=== PATIENT | female | born 1985 | race Caucasian/White ===

== ENCOUNTER 2024-10-29 13:55 | Outpatient (AMB) | payer MEDICAID, SELFPAY ==
[2024-10-29 14:04] VITALS: BP 178/108; PULSE 95; RESP 16; TEMP 36.7; O2SAT 98; BMI 30.7
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
== END 2024-10-29 15:03 | disposition home or self-care (01) ==
LOC: HODAHC 13:55
PROVIDERS: PCP Student in an Organized Health Care Education/Training Program; Referring Provider Student in an Organized Health Care Education/Training Program; Supervising Provider Student in an Organized Health Care Education/Training Program; Visit Provider Student in an Organized Health Care Education/Training Program
DX: Z76.0 Encounter for issue of repeat prescription (principal); I10 Essential (primary) hypertension; R80.9 Proteinuria, unspecified; E11.9 Type 2 diabetes mellitus without complications; Z79.4 Long term (current) use of insulin; N28.89 Other specified disorders of kidney and ureter
CPT/HCPCS: 99213; G0463

== ENCOUNTER 2024-11-12 14:05 | Outpatient (AMB) | payer MEDICAID, SELFPAY ==
[2024-11-12 14:30] VITALS: BP 128/75; PULSE 90; RESP 16; TEMP 36.8; O2SAT 98; BMI 30.4
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
== END 2024-11-12 14:30 | disposition home or self-care (01) ==
LOC: HODAHC 14:05
PROVIDERS: PCP Student in an Organized Health Care Education/Training Program; Referring Provider Student in an Organized Health Care Education/Training Program; Supervising Provider Internal Medicine; Visit Provider Student in an Organized Health Care Education/Training Program
DX: R80.9 Proteinuria, unspecified (principal); E11.9 Type 2 diabetes mellitus without complications; Z79.4 Long term (current) use of insulin
CPT/HCPCS: 99214; G0463

== ENCOUNTER 2024-12-24 13:28 | Outpatient (AMB) | payer MEDICAID, SELFPAY ==
[2024-12-24 13:38] VITALS: BP 157/98; PULSE 93; RESP 18; TEMP 36.3; O2SAT 96; BMI 29.9
--- NOTE | 2024-12-24 13:38 | ACNOTE_ITS ---
Vital Signs 12/24/24 13:38 Height 1.66 m Height Method Stated Weight 82.667 kg Weight Measurement Method Standing Scale BMI 29.9 BP 157/98 H Blood Pressure Source Automatic Cuff Blood Pressure Location Left Upper Arm Position Sitting Respiration 18 Pulse 93 Pulse Source Monitor Temp 97.3 F Temp Source Oral Pulse Oximetry (%) 96 Oxygen Delivery Method Room Air Allergies/Meds Allergies & Medications Allergies No Known Allergies Allergy (Verified 01/14/25 15:05) Medication Reconciliation blood-glucose sensor (FreeStyle Mike 3 Sensor device) #2 ea 12/24/24 [Rx Confirmed 01/14/25] cholecalciferol (vitamin D3) 1,250 mcg (50,000 unit) capsule 1,250 mcg PO QWEEK #4 caps 12/24/24 [Rx Confirmed 01/14/25] ferrous sulfate 325 mg (65 mg iron) tablet 325 mg PO QDAY anemia #30 tabs 12/24/24 [Rx Confirmed 01/14/25] insulin glargine 100 unit/mL (3 mL) subcutaneous pen 18 unit (0.18 mL) subcut QPM #15 mL 12/24/24 [Rx Confirmed 01/14/25] pen needle, diabetic 29 gauge x 1/2 (Pen Needle) #100 ea 12/24/24 [Rx Confirmed 01/14/25] aspirin 81 mg chewable tablet 81 mg PO QDAY 12/30/24 [History Confirmed 01/14/25] Held on 12/30/24. Instructions: Resume on 01/01/25. restart on Friday01/01/25 chlorthalidone 25 mg tablet 25 mg PO QDAY #30 tabs 01/14/25 [Rx] dapagliflozin propanediol 10 mg tablet (Farxiga) 10 mg PO QAM #30 tabs 01/14/25 [Rx] lidocaine 5 % topical patch 3 patch topical QDAY #30 ea 01/14/25 [Rx] losartan 100 mg tablet 100 mg PO QDAY HTN #30 tabs 01/14/25 [Rx] nifedipine 30 mg tablet,extended release 60 mg (2 x 30 mg) PO QDAY #30 tabs 01/14/25 [Rx] semaglutide 1 mg/dose (4 mg/3 mL) subcutaneous pen injector (Ozempic) 1 mg (0.75 mL) subcut QWEEK #3 mL 01/14/25 [Rx] spironolactone 50 mg tablet (Aldactone) 50 mg PO QDAY #90 tabs 01/14/25 [Rx] MA Intake Visit Data Collection New Patient or Established: Established Patient (seen at [facility] within 3 years) Seen by Clinical Staff ONLY (RN/CHRISTIN): No Pain Present Currently: No Pain scale:: 0 Pain Scale Used: [employer] Member Required: No PCP or OBGYN visit in last 3 months: Yes Hx Now: No Date of Last Menstrual Period: 11/30/24 Do You Feel Safe at Home: Yes Authorities Contacted: N/A Smoking Status Smoking Status: Never smoker Immunization / Flu Flu Vaccine in the Last 12 Months: Yes Flu Vaccine Exclusion Criteria: No Exclusion Criteria Past Medical History Past Medical History NEUROLOGIC: Negative Neurological Disorders, Cerebrovascular Accident, Transient Ischemic Attacks (TIA), Dementia, Alzheimer's Disease, Parkinson's Disease, Brain Tumor, Meningitis, Seizures, Epilepsy, Multiple Sclerosis, Cerebral Palsy, Amyotrophic Lateral Sclerosis (ALS/Gertrude Gehrig's), Guillain-Buffalo Syndrome, Spina Bifida, Paralysis, Peripheral Neuropathy, Burrows's Palsy, Subdural Hematoma, Migraine, Head Trauma, Spinal Cord Injury or Traumatic Brain Injury CARDIAC: Positive Cardiac Disorders, Edema and Hypertension; Negative Myocardial Infarction, Cardiac Arrhythmia, Atrial Fibrillation, Angina, Heart Murmur, Coronary Artery Disease, Atherosclerotic Heart Disease, Peripheral Vascular Disease, Hypercholesterolemia, Aneurysm, Congestive Heart Failure, Congenital Heart Disease, Valvular Heart Disease, Rheumatic Fever, Cardiomyopathy, Pericarditis, Cellulitis, Deep Vein Thrombosis, Hypotension or Varicose Veins RESPIRATORY: Negative Chronic Obstructive Pulmonary Disease (COPD), Asthma, Bronchitis, Emphysema, Pneumonia, Pulmonary Fibrosis, Cystic Fibrosis, Tuberculosis, Pulmonary Embolism, Pulmonary Edema or Sleep Apnea GASTROINTESTINAL: Negative Gastrointestinal Disorders, Hepatitis, Cirrhosis, Pancreatitis, Celiac Disease, Gall Bladder Disease, Gastrointestinal Bleed, Esophageal Varices, Johnston's Esophagus, Colitis, Ulcerative Colitis, Diverticulitis, Diverticulosis, Ulcer, Colorectal Cancer, Irritable Bowel, Crohn's Disease, Obstructive Bowel, Hiatal Hernia, Hemorrhoids, Gastroesophageal Reflux Disease or Obesity GENITOURINARY: Negative Genitourinary Disorders, Renal Disease, Kidney Stones, Polycystic Kidney Disease, Neurogenic Bladder, Inguinal Hernia, Dialysis or Prostate Cancer REPRODUCTIVE: Negative Breast Cancer, Endometriosis, Genital Herpes, Gonorrhea, Pelvic Inflammatory Disease, Previous Pregnancies, Syphilis, Testicular Cancer or Uterine Prolapse MUSCULOSKELETAL: Negative Muscular Dystrophy, Myasthenia Gravis, Marfan's Syndrome, Bone Cancer, Arthritis, Rheumatoid Arthritis, Osteoporosis, Degenerative Disk Disease, Gout, Scoliosis, Carpal Tunnel Syndrome, Fibromyalgia, Fractures, Degenerative Joint Disease, Osteomyelitis or Poliovirus ENT: Negative Cataracts, Glaucoma, Blind, Retinal Detachment, Macular Degeneration, Ear Infection, Deafness, Head Trauma or Eye Prosthesis ENDOCRINE: Positive Endocrine Disorders and Diabetes Mellitus Type 2; Negative Diabetes Mellitus Type 1, Hypoglycemia, Bloom[place]'s Syndrome, Dallam's Disease, Hyperthyroidism, Hypothyroidism, Parathyroid Disease, Pituitary Disease, Systemic Lupus Erythematosus, Syndrome of Inappropriate Antidiuretic Hormone (SIADH), Adrenal Disease or Graves' Disease HEMATOLOGIC: Negative Blood Disorders, Anemia, Leukemia, Hemophilia, Thalassemia, Sickle Cell Disease or Clotting Problems PSYCHO/SOCIAL: Negative Psychiatric Problems, Schizophrenia, Recreational Drug Use, Bipolar Disorder, Depression, Anxiety, Behavior Problems, Self-Mutilation, Attention Deficit Disorder, Attention Deficit Hyperactivity Disorder, Depression, Post Traumatic Stress Disorder or Eating Disorder OTHER HISTORY: Negative Down Syndrome, Autism, Developmental Delay, Shingles, Falls, Blood Transfusions, Blood Transfusion Reaction, Anesthesia Reactions, Organ Transplant, Chemotherapy, Radiation Therapy, Hyperbaric Therapy, MRSA, VRSA, Vancomycin-Resistant Enterococci, Human Immunodeficiency Virus (HIV), Chicken Pox, Measles, Mumps, Rubella (Tamazight Measles), Pertussis, Clostridium Difficile, Cancer, Breast Cancer, Cervical Cancer, Colorectal Cancer, Lung Cancer, Ovarian Cancer, Prostate Cancer or Testicular Cancer Family History FAMILY HISTORY: Negative Family Psychiatric Problems, Family Respiratory Disorders, Family Cardiac Disorders, Family Gastrointestinal Problems, Family Cancer, Family Surgery or Family Anesthesia Reaction Surgical History SURGICAL: Negative Cardiac Surgery, Open Heart Surgery, Coronary Artery Bypass Graft, Valve Replacement, Vascular Surgery, Coronary Stent, Cardiac Catheterization, Pacemaker, Angiogram, Auto Implanted Cardiovert Defib, Carotid Endarterectomy, Endocrine Surgery, Thyroidectomy, Ear Surgery, Tympanostomy Tube, Eye Surgery, Nose Surgery, Oral Surgery, Tonsillectomy, Adenoidectomy, Cochlear Implant, Corneal Transplant, Throat Surgery, Abdominal Surgery, Tracheostomy, Gastric Bypass Surgery, Gastrostomy, Bowel Surgery, Nephrectomy, Transurethral Resection, Joint Replacement, Amputation, Open Reduction Internal Fixation, Arthroscopy, Neurologic Surgery, Mastectomy, Lumpectomy, Hysterectomy, Tubal Ligation, Section or Organ Transplant Social History SMOKING STATUS: Smoking status: Never smoker ALCOHOL: Alcohol Intake: Current ALCOHOL FREQUENCY: Alcohol Intake Frequency: holidays/special occasions only HOUSING: Housing: Apartment LIVES WITH: Lives With: Family Patient Portal Questionaires PHQ-9 PHQ-2 Over the last 2 weeks, how often have you been bothered by any of the following problems? 1. Little interest or pleasure in doing things: not at all 2. Feeling down, depressed, or hopeless: not at all Total score: 0 PHQ-9 3. Trouble falling or staying asleep, or sleeping too much: Not at all 4. Feeling tired or having little energy: Not at all 5. Poor appetite or overeating: Not at all 6. Feeling bad about yourself - or that you are a failure or have let yourself or your family down: Not at all 7. Trouble concentrating on things, such as reading the newspaper or watching television: Not at all 8. Moving or speaking so slowly that other people could have noticed? - Or the opposite - being so fidgety or restless that you have been moving around a lot more than usual: not at all 9. Thoughts that you would be better off or of hurting yourself in some way: Not at all Total score: 0 Source: Developed by Drs. Mani Mclaughlin, Loyda Arevalo, Nick Mcgregor and colleagues, with an educational jessie from [employer]. Depression screen completed yes Social History Living Situation History Housing: Apartment Tobacco History Smoking Status: Never smoker Alcohol History Alcohol Intake: Current Alcohol Intake Frequency: holidays/special occasions only Domestic Abuse History Do You Feel Safe at Home: Yes Review of Systems Report any current symptoms Only answer those that you have currently: Past Medical History Past Medical History Have you ever been diagnosed with any of the following: Neurological Problems Cerebrovascular Accident (CVA): No Transient Ischemic Attacks (TIA): No Dementia: No Alzheimer's Disease: No Parkinson's Disease: No Brain Tumor: No Meningitis: No Seizures: No Epilepsy: No Multiple Sclerosis: No Cerebral Palsy: No Amyotrophic Lateral Sclerosis (ALS/Gertrude Gehrig's): No Guillain-Buffalo Syndrome: No Spina Bifida: No Paralysis: No Peripheral Neuropathy: No Burrows's Palsy: No Subdural Hematoma: No Migraine: No Head Trauma: No Spinal Cord Injury: No Traumatic Brain Injury: No Cardiology Problems Myocardial Infarction: No Cardiac Arrhythmia: No Atrial Fibrillation: No Angina: No Heart Murmur: No Coronary Artery Disease: No Atherosclerotic Heart Disease: No Peripheral Vascular Disease: No Hypercholesterolemia: No Aneurysm: No Congestive Heart Failure: No Congenital Heart Disease: No Valvular Heart Disease: No Rheumatic Fever: No Cardiomyopathy: No Edema: Yes Pericarditis: No Cellulitis: No Deep Vein Thrombosis: No Hypertension: Yes Hypotension: No Varicose Veins: No Respiratory Problems Chronic Obstructive Pulmonary Disease (COPD): No Asthma: No Bronchitis: No Emphysema: No Pneumonia: No Pulmonary Fibrosis: No Tuberculosis: No Pulmonary Embolism: No Pulmonary Edema: No Sleep Apnea: No Stomache/Intestinal Problems Hepatitis: No Cirrhosis: No Pancreatitis: No Celiac Disease: No Gall Bladder Disease: No Gastrointestinal Bleed: No Esophageal Varices: No Johnston's Esophagus: No Colitis: No Ulcerative Colitis: No Diverticulitis: No Diverticulosis: No Ulcer: No Colorectal Cancer: No Irritable Bowel: No Crohn's Disease: No Obstructive Bowel: No Hiatal Hernia: No Hemorrhoids: No Gastroesophageal Reflux Disease: No Obesity: No Genital/Urinary Problems Renal Disease: No Kidney Stones: No Polycystic Kidney Disease: No Neurogenic Bladder: No Inguinal Hernia: No Dialysis: No Prostate Cancer: No Reproductive Problems Breast Cancer: No Endometriosis: No Genital Herpes: No Gonorrhea: No Pelvic Inflammatory Disease: No Previous Pregnancies: No Syphilis: No Testicular Cancer: No Uterine Prolapse: No Musculoskeletal Problems Muscular Dystrophy: No Myasthenia Gravis: No Marfan's Syndrome: No Bone Cancer: No Arthritis: No Rheumatoid Arthritis: No Osteoporosis: No Degenerative Disk Disease: No Gout: No Scoliosis: No Carpal Tunnel Syndrome: No Fibromyalgia: No Fractures: No Degenerative Joint Disease: No Osteomyelitis: No Poliovirus: No Head,Eye,Nose,Throat Problems Cataracts: No Glaucoma: No Blind: No Retinal Detachment: No Macular Degeneration: No Chronic Ear Infections: No Deafness: No Eye Prosthesis: No Endocrine Problems Diabetes Mellitus Type 1: No Diabetes Mellitus Type 2: Yes Hypoglycemia: No Bloomington's Syndrome: No Dallam's Disease: No Hyperthyroidism: No Hypothyroidism: No Parathyroid Disease: No Pituitary Disease: No Systemic Lupus Erythematosus: No Syndrome of Inappropriate Antidiuretic Hormone: No Adrenal Disease: No Graves' Disease: No Blood Problems Anemia: No Leukemia: No Hemophilia: No Thalassemia: No Sickle Cell Disease: No Clotting Problems: No Psychologic Problems Schizophrenia: No Recreational Drug Use: No Bipolar Disorder: No Depression: No Anxiety: No Behavior Problems: No Self-Mutilation: No Attention Deficit Disorder: No Attention Deficit Hyperactivity Disorder: No Depression: No Post Traumatic Stress Disorder: No Eating Disorder: No Other Problems Down Syndrome: No Autism: No Developmental Delay: No Shingles: No Falls: No Blood Transfusions: No Blood Transfusion Reaction: No Anesthesia Reactions: No Organ Transplant: No Chemotherapy: No Radiation Therapy: No Hyperbaric Therapy: No MRSA: No VRSA: No Vancomycin-Resistant Enterococci: No Human Immunodeficiency Virus (HIV): No Chicken Pox: No Measles: No Mumps: No Rubella (Tamazight Measles): No Pertussis: No Clostridium Difficile: No Cancer: No Cervical Cancer: No Lung Cancer: No Ovarian Cancer: No Surgical History Carotid Endarterectomy: No Coronary Artery Bypass Graft: No Valve Replacement: No Hysterectomy: No Pacemaker: No Thyroidectomy: No History of Present Illness HPI Narrative 12/24/24: Patient is here for f/u. Patient continue to have elevated BP. Patient is being referred for kidney biopsy. Review of Systems Review of Systems Systems Reviewed: All systems reviewed, normal except as documented Assessment & Plan Diagnosis / Problem List (1) Proteinuria: Status: Acute Qualifiers: Proteinuria type: unspecified Qualified Code(s): R80.9 - Proteinuria, unspecified Assessment & Plan: random alb/cr ratio showed approx 10g of protein loss in the urine suspect likely 2/2 to uncontrolled HTN and DM2 causing HTN/diabetic nephropathy however due to age cannot rule out other nephrotic causes such as membranous nephropathy, RICHARD, FSGS, Lupus nephritis Renal US showed moderate parenchymal scarring GFR 79 on 06/2024 Autoimmune panel return wnl Plan: -[id number] started -referred to kidney biopsy (2) Hypertension: Status: Chronic Qualifiers: Hypertension type: primary hypertension Qualified Code(s): I10 - Essential (primary) hypertension Assessment & Plan: Elevated today, not controlled or at goal Plan: -cont losartan 100 mg QD -start procardia 30mg QD -started spirolactine 50mg QD by neph -measure BP at home -lifestyle modifications were recommended -follow in 2 weeks, if not at goal we will increase dosage (3) Diabetes type 2, controlled: Status: Acute Qualifiers: Diabetes mellitus penitentiary insulin use: 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 Issues of concern for present visit are as follows: Follow-up visit. Labs reviewed. Nephrotic range proteinuria on labs, renal ultrasound showed moderate parenchymal scarring. Autoimmune panel was within normal limits. Patient started on SGLT2 inhibitor. Referral made for nephrology for workup of proteinuria; possible causes may be uncontrolled hypertension and diabetes but cannot rule out other possible causes. Diabetes self-care reviewed including diet, exercise, footcare, eye care. Blood pressure is elevated today, we will add nifedipine 30 mg daily to losartan. Jose Kim MD Office Procedures [facility] Level of Care Nursing/Assessment Patient Status: Established Patient Nursing Assessment/Reassessment: Medication Reconciliation, Update PMH in EMR and Vital Signs Coordination of Care: Complex Care and Chronic Disease 1-5, Consent,records obtained, informed consent, Education Simp Pt/Fam, Results/Orders obtained and Staff clarify orders Established Patient Charge Established Patient Point Assignment: 90 Established Patient Point Charge: EP Level 3 (80-115)
== END 2024-12-24 14:34 | disposition home or self-care (01) ==
LOC: HODAHC 13:28
PROVIDERS: PCP Student in an Organized Health Care Education/Training Program; Referring Provider Student in an Organized Health Care Education/Training Program; Supervising Provider Internal Medicine; Visit Provider Student in an Organized Health Care Education/Training Program
DX: R80.9 Proteinuria, unspecified (principal); I10 Essential (primary) hypertension; E11.9 Type 2 diabetes mellitus without complications; Z79.4 Long term (current) use of insulin; Z79.84 Long term (current) use of oral hypoglycemic drugs; Z79.85 Long-term (current) use of injectable non-insulin antidiabetic drugs; N28.89 Other specified disorders of kidney and ureter
CPT/HCPCS: 99213; G0463

== ENCOUNTER 2024-12-30 07:17 | Outpatient (CLI) | payer MEDICAID, SELFPAY ==
[2024-12-24 16:10] VITALS: BMI 29.9
[2024-12-28 08:14] LABS: Blood Urea Nitrogen 23 mg/dL (9-23); Creatinine (Component) 1.2 mg/dL (0.6-1.3); Estimated Creatinine Clearance 65.8 mL/min (>60); eGFR 59 See Note
[2024-12-28 08:17] LABS: Basophils # (Auto) 0.1 Thou/mm3 (0.0-0.2); Basophils % (Auto) 1 % (0-2.5); Eosinophils # (Auto) 0.7 Thou/mm3 (0.0-0.5); Eosinophils % (Auto) 8 % (0-10); Hematocrit 36.6 % (36.0-46.0); Hemoglobin 12.1 g/dL (12.0-16.0); Immature Granulocytes % (Auto) 0 % (0-0); Immature Granulocytes Auto 0.02 Thou/mm3 (0.00-0.00); Lymphocytes % (Auto) 31 % (10-50); Mean Corpuscular HGB Conc 33.1 g/dl (31.0-37.0); Mean Corpuscular Hemoglobin 27.7 pg (25.0-35.0); Mean Corpuscular Volume 84 fL (80-100); Monocytes # (Auto) 0.8 Thou/mm3 (0.0-0.8); Monocytes % (Auto) 9 % (0-12); Neutrophils # (Auto) 4.9 Thou/mm3 (1.8-7.7); Neutrophils % (Auto) 51 % (37-80); Nucleated Red Blood Cell % 0 /100 WBC (0); Platelet Count 347 Thou/mm3 (140-440); RDW Standard Deviation 42.6 fL (36.4-46.3); Red Blood Count 4.37 Miln/mm3 (4.00-5.20); White Blood Count 9.5 Thou/mm3 (3.6-11.0)
[2024-12-28 08:19] LABS: HCG,Qualitative Serum Negative
[2024-12-28 08:36] VITALS: BP 153/100; PULSE 87; RESP 15; TEMP 36.6; O2SAT 96
[2024-12-28 08:52] LABS: Partial Thromboplastin Time 27.1 Seconds (22.0-36.0); Prothrombin Time 10.7 Seconds (9.0-12.2)
[2024-12-30] VITALS (11 sets, daily range): BP systolic 117–145; BP diastolic 75–91; PULSE 94–101; RESP 13–22; TEMP 36.3–36.4; O2SAT 100
--- NOTE | 2024-12-30 08:30 | XR_ITS ---
Examination: CT-guided percutaneous medical renal biopsy lower pole right kidney CT abdomen without intravenous contrast Date and time of procedure: December 30, 2024 0941 hours INDICATIONS: Diagnosis abnormal proteinuria unspecified Informed consent provided. A timeout was completed verifying correct patient, procedure, site and positioning. Technique: Axial 3 mm sections were obtained for localization of the lung lower pole right kidney Appropriate area is marked. The patient's site was prepped and draped in sterile fashion Maximal sterile barrier technique utilized, including hand hygiene Local anesthesia was obtained with 1% lidocaine. Low dose protocols were performed. One or more of the following dose reduction techniques were used; automated exposure control, adjustment of the mA and/or KV according to patient size, use of iterative reconstruction technique. Utilizing fluoroscopic guidance 2 core biopsies with an 18-gauge core needle obtained of the lower pole right kidney Patient appears in stable condition during this procedure. At completion of the procedure, the patient is in satisfactory condition. Estimated blood loss 2 cc Complete pathology report to follow. Impression: Successful CT-guided medical renal biopsy lower pole right kidney
[2024-12-30] MEDS: fentaNYL CIT INJ 50 mCg/ML AMP 2ML 75 MCG IVP (09:51)
== END 2024-12-30 11:05 | disposition home or self-care (01) ==
PROVIDERS: Radiology Diagnostic Radiology; PCP Student in an Organized Health Care Education/Training Program; Referring Provider Student in an Organized Health Care Education/Training Program; Visit Provider Student in an Organized Health Care Education/Training Program
DX: N26.9 Renal sclerosis, unspecified (principal); N18.9 Chronic kidney disease, unspecified; Z01.812 Encounter for preprocedural laboratory examination
CPT/HCPCS: 50200; 36415; 77012; 82565; 84520; 84703; 85025; 85610; 85730; J3010

== ENCOUNTER 2025-01-14 14:50 | Outpatient (AMB) | payer MEDICAID, SELFPAY ==
[2025-01-14 15:02] VITALS: BP 164/93; PULSE 98; RESP 18; TEMP 36.6; O2SAT 98
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
== END 2025-01-14 16:30 | disposition home or self-care (01) ==
LOC: HODAHC 14:50
PROVIDERS: PCP Student in an Organized Health Care Education/Training Program; Referring Provider Student in an Organized Health Care Education/Training Program; Supervising Provider Internal Medicine; Visit Provider Student in an Organized Health Care Education/Training Program
DX: I10 Essential (primary) hypertension (principal); E11.9 Type 2 diabetes mellitus without complications; Z79.4 Long term (current) use of insulin; R80.9 Proteinuria, unspecified; N94.6 Dysmenorrhea, unspecified
CPT/HCPCS: 99213; G0463

== ENCOUNTER 2025-02-03 14:26 | Outpatient (AMB) | payer MEDICAID, SELFPAY ==
[2025-02-03 14:39] VITALS: BP 121/81; PULSE 98; RESP 18; TEMP 37; O2SAT 98; BMI 28.7
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
== END 2025-02-03 15:33 | disposition home or self-care (01) ==
LOC: HODAHC 14:26
PROVIDERS: PCP Student in an Organized Health Care Education/Training Program; Referring Provider Student in an Organized Health Care Education/Training Program; Supervising Provider Internal Medicine; Visit Provider Student in an Organized Health Care Education/Training Program
DX: I12.9 Hypertensive chronic kidney disease with stage 1 through stage 4 chronic kidney disease, or unspecified chronic kidney disease (principal); E11.22 Type 2 diabetes mellitus with diabetic chronic kidney disease; E11.21 Type 2 diabetes mellitus with diabetic nephropathy; N18.9 Chronic kidney disease, unspecified; Z79.4 Long term (current) use of insulin
CPT/HCPCS: 99213; G0463

== ENCOUNTER 2025-02-11 14:06 | Outpatient (AMB) | payer MEDICAID, SELFPAY ==
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
== END 2025-02-11 16:34 | disposition home or self-care (01) ==
LOC: HODAHC 14:06
PROVIDERS: PCP Student in an Organized Health Care Education/Training Program; Referring Provider Student in an Organized Health Care Education/Training Program; Supervising Provider Internal Medicine; Visit Provider Student in an Organized Health Care Education/Training Program
DX: I10 Essential (primary) hypertension (principal)
CPT/HCPCS: 99212; G0463

== ENCOUNTER 2025-04-04 10:38 | Outpatient (AMB) | payer MEDICAID, SELFPAY ==
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
[2025-04-04 11:02] VITALS: BP 163/91; PULSE 91; RESP 18; TEMP 36.8; O2SAT 93; BMI 29.7
== END 2025-04-04 13:07 | disposition home or self-care (01) ==
LOC: HODAHC 10:38
PROVIDERS: Supervising Provider Internal Medicine
DX: H60.92 Unspecified otitis externa, left ear (principal); E11.9 Type 2 diabetes mellitus without complications; I10 Essential (primary) hypertension; Z79.85 Long-term (current) use of injectable non-insulin antidiabetic drugs; Z79.4 Long term (current) use of insulin; Z79.84 Long term (current) use of oral hypoglycemic drugs
CPT/HCPCS: 99213; G0463

== ENCOUNTER 2025-04-18 11:12 | Outpatient (AMB) | payer MEDICAID, SELFPAY ==
[2025-04-18 11:25] VITALS: BP 162/89; PULSE 105; RESP 17; TEMP 36.6; O2SAT 91; BMI 29.2
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
== END 2025-04-18 12:08 | disposition home or self-care (01) ==
PROVIDERS: Supervising Provider Obstetrics & Gynecology; Visit Provider Obstetrics & Gynecology
DX: Z01.419 Encounter for gynecological examination (general) (routine) without abnormal findings (principal)
CPT/HCPCS: 99213; G0463

== ENCOUNTER 2025-05-04 10:42 | Outpatient (AMB) | payer MEDICAID, SELFPAY ==
[2025-05-04 10:56] VITALS: BP 139/85; PULSE 91; RESP 17; TEMP 36.3; O2SAT 98; BMI 29.5
--- NOTE | 2025-05-04 10:56 | AMB.GYNCLNOT ---
Vital Signs 05/04/25 10:56 Height 1.68 m Height Method Measured Weight 83.178 kg Weight Measurement Method Standing Scale BMI 29.5 BP 139/85 H Blood Pressure Source Automatic Cuff Blood Pressure Location Right Upper Arm Position Sitting Respiration 17 Pulse 91 Pulse Source Monitor Temp 97.4 F Temp Source Temporal Artery Scan Pulse Oximetry (%) 98 Oxygen Delivery Method Room Air Allergies/Home Meds Allergies & Medications Allergies No Known Allergies Allergy (Verified 05/04/25 10:57) Medication Reconciliation aspirin 81 mg chewable tablet 81 mg PO QDAY 12/30/24 [History Confirmed 05/04/25] Held on 12/30/24. Instructions: Resume on 01/01/25. restart on Friday01/01/25 lidocaine 5 % topical patch 3 patch topical QDAY #30 ea 01/14/25 [Rx Confirmed 05/04/25] blood-glucose sensor (FreeStyle Mike 3 Sensor device) #2 ea 02/11/25 [Rx Confirmed 05/04/25] chlorthalidone 25 mg tablet 25 mg PO QDAY #30 tabs 02/11/25 [Rx Confirmed 05/04/25] cholecalciferol (vitamin D3) 1,250 mcg (50,000 unit) capsule 1,250 mcg PO QWEEK #4 caps 02/11/25 [Rx Confirmed 05/04/25] dapagliflozin propanediol 10 mg tablet (Farxiga) 10 mg PO QAM #30 tabs 02/11/25 [Rx Confirmed 05/04/25] ferrous sulfate 325 mg (65 mg iron) tablet 325 mg PO QDAY anemia #30 tabs 02/11/25 [Rx Confirmed 05/04/25] insulin glargine 100 unit/mL (3 mL) subcutaneous pen 18 unit (0.18 mL) subcut QPM #15 mL 02/11/25 [Rx Confirmed 05/04/25] losartan 100 mg tablet 100 mg PO QDAY HTN #30 tabs 02/11/25 [Rx Confirmed 05/04/25] pen needle, diabetic 29 gauge x 1/2 (Pen Needle) #100 ea 02/11/25 [Rx Confirmed 05/04/25] semaglutide 1 mg/dose (4 mg/3 mL) subcutaneous pen injector (Ozempic) 1 mg (0.75 mL) subcut QWEEK #3 mL 02/11/25 [Rx Confirmed 05/04/25] spironolactone 50 mg tablet (Aldactone) 50 mg PO QDAY #90 tabs 02/11/25 [Rx Confirmed 05/04/25] wjjkcjrz-pgxjcqjbn-jhrpnawgp 3.5 mg-10,000 unit/mL-1 % ear drops,susp 4 drp Left ear Q8H #10 mL 04/04/25 [Rx Confirmed 05/04/25] Intake Visit Data Collection New Patient or Established: Established Patient (seen at [facility] within 3 years) Reason for Visit:: ANNUAL EXAM Consent obtained for Telemed Visit: No Seen by Clinical Staff ONLY (RN/MA): No Automatic Centrifugal Station Operator Required: No Do You Feel Safe at Home: Yes Authorities Contacted: N/A PCP or OBGYN visit in last 3 months: Yes Date of Last PCP or OBGYN visit: 04/18/25 Hx Now: No Are you currently on any form of Control: No Last menstrual period: 04/17/25 Pain Present Currently: No Pain Scale Used: Quintero-Warner/Numerical Pain scale:: 0 Smoking Status Smoking Status: Smoker, status unknown 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 She does not desire future childbearing. Cycles are heavy monthly lasting 5 to 7 days especially the first 2 to 3 days are very heavy. 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 Other Relevant History: Hypertension. Insulin requiring diabetes Chronic kidney failure History of necrotizing fasciitis in 2010 Anxiety Questionnaires Covid-19 Vaccine Questionnaire Has patient been vacinated for Covid-19 Have you been vacinated for Covid-19: No PHQ-9 PHQ-2 Over the last 2 weeks, how often have you been bothered by any of the following problems? 1. Little interest or pleasure in doing things: not at all PHQ-9 8. Moving or speaking so slowly that other people could have noticed? - Or the opposite - being so fidgety or restless that you have been moving around a lot more than usual: not at all Source: Developed by Drs. Mani Mclaughlin, Loyda Arevalo, Nick Mcgregor and colleagues, with an educational jessie from [employer]. 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 Tobacco History Smoking Status: Smoker, status unknown Alcohol History Alcohol Intake: Never Alcohol Intake Frequency: holidays/special occasions only Domestic Abuse History Do You Feel Safe at Home: Yes History of Present Illness HPI Narrative The patient is a 40-year-old G0 presents for follow-up. She needs an annual exam. I did see her in the office 04/18/2025 for some abnormal bleeding. She states her cycles are 5 to 7 days last 5 to 7 days a month they are about 21 days apart in the first 2 to 3 days are extremely heavy. She has some cramping pain associated with it. Patient has chronic hypertension and is on multiple medications to control her blood pressure she also has diabetic on insulin. She has chronic kidney failure and is on two medications in order to protect her kidneys. I have an ultrasound on the chart dated 02/23/2025 revealing the uterus to measure 9.5 x 6.5 x 5.1 cm with right ovary normal, left ovary not seen well. The endometrial thickness was 0.7 cm. One fibroid was present measuring 2.8 x 3.1 cm at the fundus along with other similar lesions are seen in the uterus . These were not measured. The patient is not a candidate for control pills secondary to her hypertension. She may be a candidate for an ablation. She states she does not want to have children. Review of Systems Review of Systems Narrative Review of Systems: Patient states she has heavy cycles. She states they are painful lasting 5 to 7 days. The first 2 to 3 days are the most heavy and most uncomfortable. No abnormal discharge no odor no chronic pelvic pain. Exam General Limitations: no limitations General Appearance: alert, in no apparent distress, comfortable, cooperative, healthy appearing and well groomed Neck Neck exam: Present normal inspection, full ROM and trachea midline Chest Chest inspection: Present normal inspection and symmetric chest wall rise Exp Chest Breast: bilateral: other (Normal breast exam bilaterally.) Resp Respiratory exam: Present normal lung sounds bilaterally Card Cardiovascular exam: Present regular rate, normal rhythm and normal heart sounds Abdominal Abdominal exam: Present soft and normal bowel sounds External exam: Present normal external exam Speculum exam: Present normal speculum exam and other (Patient has a fibroid protruding from her os approximately 3 x 3 cm.) Bimanual exam: Present normal bimanual exam (Uterus is anteverted the fibroid can be felt coming from her cervix on pelvic exam.) Extremities Extremities exam: Present normal inspection and full ROM Psych Psychiatric exam: Present normal affect and normal mood Skin Skin exam: Present warm, dry, intact and normal color Office Procedures OB Clinic LOC & Office Proc's Nursing/Assessment Patient Status: Established Patient OB Clinic Nursing Assessment: Medication Reconciliation, Update PMH in EMR and Vital Signs OB Clinic Coordination of Care: Complex Care and Chronic Disease 1-5, Consent,records obtained, informed consent and 4+ Authorizations needed Miscellaneous Interventions: Breast Exam Established Patient Charge Established Patient Point Assignment: 115 Established Patient Point Charge: EP Level 3 (80-115) In Clinic Procedures Pap Smear: Yes Assessment & Plan Diagnosis / Problem List (1) DUB (dysfunctional uterine bleeding): Status: Acute Plan: Patient has a protruding fibroid. She is a good candidate for a a hysteroscopy, myomectomy, dilation curettage, NovaSure ablation. I explained this would most likely lighten up her cycles. We need to remove the fibroid on her cervix as it will continue to cause bleeding and pain. If patient continues to bleed then she is a candidate for hysterectomy. Patient agrees with this plan will go and authorize for the procedure. (2) Pelvic pain: Status: Acute (3) CKD (chronic kidney disease): Status: Acute Qualifiers: Chronic kidney disease stage: stage 2 (GFR 60-89) Qualified Code(s): N18.2 - Chronic kidney disease, stage 2 (mild) Plan: Patient is on medications and following with her specialist. (4) Proteinuria: Status: Acute Qualifiers: Proteinuria type: unspecified Qualified Code(s): R80.9 - Proteinuria, unspecified (5) Hypertension: Status: Chronic Qualifiers: Hypertension type: primary hypertension Qualified Code(s): I10 - Essential (primary) hypertension (6) Insulin dependent diabetes mellitus: Status: Chronic (7) Women's annual routine gynecological examination: Status: Acute Plan: Pap with cotesting HPV was performed breast exam done encouraged mammogram was ordered. 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 Friable fibroid.) Collection method: broom type device Specimen placed in liquid-based cytology medium: Yes Complications: No Patient tolerated procedure well: Yes Follow up pending results: phone call Procedure Notes:: Pap with high-risk HPV performed Papsmear completed: yes
== END 2025-05-04 11:40 | disposition home or self-care (01) ==
LOC: HODSOBC 10:42
PROVIDERS: Supervising Provider Obstetrics & Gynecology; Visit Provider Obstetrics & Gynecology
DX: Z01.411 Encounter for gynecological examination (general) (routine) with abnormal findings (principal); Z11.51 Encounter for screening for human papillomavirus (HPV); N93.8 Other specified abnormal uterine and vaginal bleeding; D25.9 Leiomyoma of uterus, unspecified; E11.22 Type 2 diabetes mellitus with diabetic chronic kidney disease; I12.9 Hypertensive chronic kidney disease with stage 1 through stage 4 chronic kidney disease, or unspecified chronic kidney disease; N18.9 Chronic kidney disease, unspecified; F41.9 Anxiety disorder, unspecified; Z79.4 Long term (current) use of insulin; Z79.82 Long term (current) use of aspirin; Z79.84 Long term (current) use of oral hypoglycemic drugs; Z79.85 Long-term (current) use of injectable non-insulin antidiabetic drugs; Z79.899 Other long term (current) drug therapy
CPT/HCPCS: 99213; Q0091; G0463

== ENCOUNTER → 2025-05-27 | Outpatient (CLI) | payer MEDICAID, SELFPAY ==
--- NOTE | 2025-05-27 09:45 | XR_ITS ---
Examination: Transvaginal ultrasound of the pelvis, complete Technique: Transvaginal sonographic images pelvis performed using chatman scale imaging Exam date and time: May 27, 2025 1116 hours INDICATIONS: Severe pelvic cramping and perineal pressure 6 months FINDINGS: Uterus 8.7 cm fundal mass 2.7 x 3.1 cm uterine body mass 7 x 8 mm Endometrial stripe 0.6 cm Right ovary solid mass vascular 3.5 x 3.6 cm Left ovary 3.0 cm arterial flow 18 mm follicular cyst IMPRESSION: Uterine areas of fibroid degeneration as above Vascular solid right ovarian mass 3.5 x 3.0 x 3.6 cm most consistent with a brain tumor Recommend MRI pelvis follow-up pre and postcontrast.
== END | disposition home or self-care (01) ==
PROVIDERS: PCP Student in an Organized Health Care Education/Training Program; Referring Provider Obstetrics & Gynecology; Visit Provider Obstetrics & Gynecology
DX: D25.9 Leiomyoma of uterus, unspecified (principal); N83.8 Other noninflammatory disorders of ovary, fallopian tube and broad ligament
CPT/HCPCS: 76830

== ENCOUNTER 2025-06-15 15:04 | Outpatient (AMB) | payer MEDICAID, SELFPAY ==
[2025-06-15 15:25] VITALS: BP 127/81; PULSE 97; RESP 17; TEMP 36.2; O2SAT 97; BMI 29.4
--- NOTE | 2025-06-15 15:25 | PD.RESCLINIC ---
Vital Signs 06/15/25 15:25 Height 1.68 m Height Method Stated Weight 83.064 kg Weight Measurement Method Standing Scale BMI 29.4 BP 127/81 Blood Pressure Source Automatic Cuff Blood Pressure Location Right Upper Arm Position Sitting Respiration 17 Pulse 97 Pulse Source Monitor Temp 97.1 F Temp Source Temporal Artery Scan Pulse Oximetry (%) 97 Allergies/Meds Allergies & Medications Allergies No Known Allergies Allergy (Verified 05/04/25 10:57) MA Intake Visit Data Collection New Patient or Established: Established Patient (seen at [facility] within 3 years) Reason for Visit:: FOLLOW UP Pain Present Currently: No PCP or OBGYN visit in last 3 months: Yes Do You Feel Safe at Home: Yes Authorities Contacted: N/A Smoking Status Smoking Status: Smoker, status unknown Immunization / Flu Flu Vaccine in the Last 12 Months: No Flu Vaccine Exclusion Criteria: No Exclusion Criteria Past Medical History Past Medical History NEUROLOGIC: Negative Neurological Disorders, Cerebrovascular Accident, Transient Ischemic Attacks (TIA), Dementia, Alzheimer's Disease, Parkinson's Disease, Brain Tumor, Meningitis, Seizures, Epilepsy, Multiple Sclerosis, Cerebral Palsy, Amyotrophic Lateral Sclerosis (ALS/Gertrude Gehrig's), Guillain-[place] Syndrome, Spina Bifida, Paralysis, Peripheral Neuropathy, Burrows's Palsy, Subdural Hematoma, Migraine, Head Trauma, Spinal Cord Injury or Traumatic Brain Injury CARDIAC: Positive Cardiac Disorders, Edema and Hypertension; Negative Myocardial Infarction, Cardiac Arrhythmia, Atrial Fibrillation, Angina, Heart Murmur, Coronary Artery Disease, Atherosclerotic Heart Disease, Peripheral Vascular Disease, Hypercholesterolemia, Aneurysm, Congestive Heart Failure, Congenital Heart Disease, Valvular Heart Disease, Rheumatic Fever, Cardiomyopathy, Pericarditis, Cellulitis, Deep Vein Thrombosis, Hypotension or Varicose Veins RESPIRATORY: Negative Chronic Obstructive Pulmonary Disease (COPD), Asthma, Bronchitis, Emphysema, Pneumonia, Pulmonary Fibrosis, Cystic Fibrosis, Tuberculosis, Pulmonary Embolism, Pulmonary Edema or Sleep Apnea GASTROINTESTINAL: Negative Gastrointestinal Disorders, Hepatitis, Cirrhosis, Pancreatitis, Celiac Disease, Gall Bladder Disease, Gastrointestinal Bleed, Esophageal Varices, Johnston's Esophagus, Colitis, Ulcerative Colitis, Diverticulitis, Diverticulosis, Ulcer, Colorectal Cancer, Irritable Bowel, Crohn's Disease, Obstructive Bowel, Hiatal Hernia, Hemorrhoids, Gastroesophageal Reflux Disease or Obesity GENITOURINARY: Negative Genitourinary Disorders, Renal Disease, Kidney Stones, Polycystic Kidney Disease, Neurogenic Bladder, Inguinal Hernia, Dialysis or Prostate Cancer REPRODUCTIVE: Negative Breast Cancer, Endometriosis, Genital Herpes, Gonorrhea, Pelvic Inflammatory Disease, Previous Pregnancies, Syphilis, Testicular Cancer or Uterine Prolapse MUSCULOSKELETAL: Negative Muscular Dystrophy, Myasthenia Gravis, Marfan's Syndrome, Bone Cancer, Arthritis, Rheumatoid Arthritis, Osteoporosis, Degenerative Disk Disease, Gout, Scoliosis, Carpal Tunnel Syndrome, Fibromyalgia, Fractures, Degenerative Joint Disease, Osteomyelitis or Poliovirus ENT: Negative Cataracts, Glaucoma, Blind, Retinal Detachment, Macular Degeneration, Ear Infection, Deafness, Head Trauma or Eye Prosthesis ENDOCRINE: Positive Endocrine Disorders and Diabetes Mellitus Type 2; Negative Diabetes Mellitus Type 1, Hypoglycemia, Partridge's Syndrome, [place]'s Disease, Hyperthyroidism, Hypothyroidism, Parathyroid Disease, Pituitary Disease, Systemic Lupus Erythematosus, Syndrome of Inappropriate Antidiuretic Hormone (SIADH), Adrenal Disease or Graves' Disease HEMATOLOGIC: Positive Anemia; Negative Blood Disorders, Leukemia, Hemophilia, Thalassemia, Sickle Cell Disease or Clotting Problems PSYCHO/SOCIAL: Positive Depression and Anxiety; Negative Psychiatric Problems, Schizophrenia, Recreational Drug Use, Bipolar Disorder, Behavior Problems, Self-Mutilation, Attention Deficit Disorder, Attention Deficit Hyperactivity Disorder, Depression, Post Traumatic Stress Disorder or Eating Disorder OTHER HISTORY: Negative Down Syndrome, Autism, Developmental Delay, Shingles, Falls, Blood Transfusions, Blood Transfusion Reaction, Anesthesia Reactions, Organ Transplant, Chemotherapy, Radiation Therapy, Hyperbaric Therapy, MRSA, VRSA, Vancomycin-Resistant Enterococci, Human Immunodeficiency Virus (HIV), Chicken Pox, Measles, Mumps, Rubella (Afghan Measles), Pertussis, Clostridium Difficile, Cancer, Breast Cancer, Cervical Cancer, Colorectal Cancer, Lung Cancer, Ovarian Cancer, Prostate Cancer or Testicular Cancer Family History FAMILY HISTORY: Negative Family Psychiatric Problems, Family Respiratory Disorders, Family Cardiac Disorders, Family Gastrointestinal Problems, Family Cancer, Family Surgery or Family Anesthesia Reaction Surgical History SURGICAL: Negative Cardiac Surgery, Open Heart Surgery, Coronary Artery Bypass Graft, Valve Replacement, Vascular Surgery, Coronary Stent, Cardiac Catheterization, Pacemaker, Angiogram, Auto Implanted Cardiovert Defib, Carotid Endarterectomy, Endocrine Surgery, Thyroidectomy, Ear Surgery, Tympanostomy Tube, Eye Surgery, Nose Surgery, Oral Surgery, Tonsillectomy, Adenoidectomy, Cochlear Implant, Corneal Transplant, Throat Surgery, Abdominal Surgery, Tracheostomy, Gastric Bypass Surgery, Gastrostomy, Bowel Surgery, Nephrectomy, Transurethral Resection, Joint Replacement, Amputation, Open Reduction Internal Fixation, Arthroscopy, Neurologic Surgery, Mastectomy, Lumpectomy, Hysterectomy, Tubal Ligation, Section or Organ Transplant Social History SMOKING STATUS: Smoking status: Smoker, status unknown ALCOHOL: Alcohol Intake: Never ALCOHOL FREQUENCY: Alcohol Intake Frequency: holidays/special occasions only HOUSING: Housing: Apartment LIVES WITH: Lives With: Family Patient Portal Questionaires PHQ-9 PHQ-2 Over the last 2 weeks, how often have you been bothered by any of the following problems? 1. Little interest or pleasure in doing things: not at all PHQ-9 8. Moving or speaking so slowly that other people could have noticed? - Or the opposite - being so fidgety or restless that you have been moving around a lot more than usual: not at all Source: Developed by Drs. Mani Mclaughlin, Loyda Arevalo, Nick Mcgregor and colleagues, with an educational jessie from [employer]. 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 Tobacco History Smoking Status: Smoker, status unknown Alcohol History Alcohol Intake: Never Alcohol Intake Frequency: holidays/special occasions only Substance Use History Substance Use: Vapes MJ Domestic Abuse History Do You Feel Safe at Home: Yes Review of Systems Report any current symptoms Only answer those that you have currently: Past Medical History Past Medical History Have you ever been diagnosed with any of the following: Neurological Problems Cerebrovascular Accident (CVA): No Transient Ischemic Attacks (TIA): No Dementia: No Alzheimer's Disease: No Parkinson's Disease: No Brain Tumor: No Meningitis: No Seizures: No Epilepsy: No Multiple Sclerosis: No Cerebral Palsy: No Amyotrophic Lateral Sclerosis (ALS/Gertrude Gehrig's): No Guillain-[place] Syndrome: No Spina Bifida: No Paralysis: No Peripheral Neuropathy: No Burrows's Palsy: No Subdural Hematoma: No Migraine: No Head Trauma: No Spinal Cord Injury: No Traumatic Brain Injury: No Cardiology Problems Myocardial Infarction: No Cardiac Arrhythmia: No Atrial Fibrillation: No Angina: No Heart Murmur: No Coronary Artery Disease: No Atherosclerotic Heart Disease: No Peripheral Vascular Disease: No Hypercholesterolemia: No Aneurysm: No Congestive Heart Failure: No Congenital Heart Disease: No Valvular Heart Disease: No Rheumatic Fever: No Cardiomyopathy: No Edema: Yes Pericarditis: No Cellulitis: No Deep Vein Thrombosis: No Hypertension: Yes Hypotension: No Varicose Veins: No Respiratory Problems Chronic Obstructive Pulmonary Disease (COPD): No Asthma: No Bronchitis: No Emphysema: No Pneumonia: No Pulmonary Fibrosis: No Tuberculosis: No Pulmonary Embolism: No Pulmonary Edema: No Sleep Apnea: No Stomache/Intestinal Problems Hepatitis: No Cirrhosis: No Pancreatitis: No Celiac Disease: No Gall Bladder Disease: No Gastrointestinal Bleed: No Esophageal Varices: No Johnston's Esophagus: No Colitis: No Ulcerative Colitis: No Diverticulitis: No Diverticulosis: No Ulcer: No Colorectal Cancer: No Irritable Bowel: No Crohn's Disease: No Obstructive Bowel: No Hiatal Hernia: No Hemorrhoids: No Gastroesophageal Reflux Disease: No Obesity: No Genital/Urinary Problems Renal Disease: No Kidney Stones: No Polycystic Kidney Disease: No Neurogenic Bladder: No Inguinal Hernia: No Dialysis: No Reproductive Problems Breast Cancer: No Endometriosis: No Genital Herpes: No Gonorrhea: No Pelvic Inflammatory Disease: No Previous Pregnancies: No Syphilis: No Uterine Prolapse: No Musculoskeletal Problems Muscular Dystrophy: No Myasthenia Gravis: No Marfan's Syndrome: No Bone Cancer: No Arthritis: No Rheumatoid Arthritis: No Osteoporosis: No Degenerative Disk Disease: No Gout: No Scoliosis: No Carpal Tunnel Syndrome: No Fibromyalgia: No Fractures: No Degenerative Joint Disease: No Osteomyelitis: No Poliovirus: No Head,Eye,Nose,Throat Problems Cataracts: No Glaucoma: No Blind: No Retinal Detachment: No Macular Degeneration: No Chronic Ear Infections: No Deafness: No Eye Prosthesis: No Endocrine Problems Diabetes Mellitus Type 1: No Diabetes Mellitus Type 2: Yes Hypoglycemia: No Partridge's Syndrome: No Davis's Disease: No Hyperthyroidism: No Hypothyroidism: No Parathyroid Disease: No Pituitary Disease: No Systemic Lupus Erythematosus: No Syndrome of Inappropriate Antidiuretic Hormone: No Adrenal Disease: No Graves' Disease: No Blood Problems Anemia: Yes Leukemia: No Hemophilia: No Thalassemia: No Sickle Cell Disease: No Clotting Problems: No Psychologic Problems Schizophrenia: No Recreational Drug Use: No Bipolar Disorder: No Depression: Yes Anxiety: Yes Behavior Problems: No Self-Mutilation: No Attention Deficit Disorder: No Attention Deficit Hyperactivity Disorder: No Depression: No Post Traumatic Stress Disorder: No Eating Disorder: No Other Problems Down Syndrome: No Autism: No Developmental Delay: No Shingles: No Falls: No Blood Transfusions: No Blood Transfusion Reaction: No Anesthesia Reactions: No Organ Transplant: No Chemotherapy: No Radiation Therapy: No Hyperbaric Therapy: No MRSA: No VRSA: No Vancomycin-Resistant Enterococci: No Human Immunodeficiency Virus (HIV): No Chicken Pox: No Measles: No Mumps: No Rubella (Afghan Measles): No Pertussis: No Clostridium Difficile: No Cancer: No Cervical Cancer: No Lung Cancer: No Ovarian Cancer: No Surgical History Carotid Endarterectomy: No Coronary Artery Bypass Graft: No Valve Replacement: No Hysterectomy: No Pacemaker: No Thyroidectomy: No History of Present Illness HPI Narrative Ms. Bueno is a 38-year-old female with past medical history of DM type II, and hypertension, and 1 ep[isoded o tonic-clonic seizure in the hospital in 2023. Pt did not follow up with neurologist and does not take any seizure medications and denies any repeat episodes of seizures. 04/04: Pt is in office due left ear pain. On friday pt went swimming and starting having ear ache yesterday which worsened this morning. Pt states with slight manipulation of the ear she has pain, and feels fullness. Denies any fevers or chills. Denies recent URI. 06/15/2025: Patient presents to the clinic for the regular check-up. Patient has fibroid causing heavy uterine bleeding. Currently following Dr. Renner for fibroids. For CKD and DM< currently following Dr. Madden. Patient is on CGM, average glucose ranges 132. Uses 16 units of insulin per day. Endorses Nausea and Vomiting after ozempic use. Refilled all her medication. Ordered lab and follow up in 3-4 months. Review of Systems Review of Systems Narrative Review of Systems: All 12 systems assessed and the patient denies unless otherwise stated in HPI Objective/Exam Narrative Physical exam: General: No acute distress, well nourished, AAO x3 Eye: PERRL, EOMI, normal conjunctiva, no scleral icterus HENT: Normocephalic, atraumatic, hearing intact to conversation at normal volume, moist oral mucosa Neck: Supple, non-tender, no JVD, no lymphadenopathy Lungs: Non-labored respirations, symmetric chest rise, Clear to auscultate bilaterally, No wheezing, rhonchi, crackles Heart: Peripheral pulses intact bilaterally, Regular Rate and Rhythm. Abdomen: Soft, non-tender, non-distended, no palpable masses Musculoskeletal: Normal range of motion and strength, No cyanosis or edema, No visible joint swelling Skin: Skin is warm, dry, no rashes or lesions. Psychiatric: Cooperative, appropriate mood and affect, Awake and alert, not agitated Neuro: Cranial nerves II-XII grossly intact. Strength 5/5 throughout. Sensations intact to light touch. Assessment & Plan Diagnosis / Problem List (1) Refill clinic medication management patient: Status: Acute Assessment & Plan: Patient presents to the clinic for the regular check-up. Patient has fibroid causing heavy uterine bleeding. Currently following Dr. Renner for fibroids. For CKD and DM< currently following Dr. Madden. Patient is on CGM, average glucose ranges 132. Uses 16 units of insulin per day. Endorses Nausea and Vomiting after ozempic use. Refilled all her medication. Ordered lab and follow up in 3-4 months. Office Procedures [facility] Level of Care Nursing/Assessment Patient Status: Established Patient Nursing Assessment/Reassessment: Medication Reconciliation, Update PMH in EMR and Vital Signs Coordination of Care: Complex Care and Chronic Disease 1-5, Consent,records obtained, informed consent, Lab and Imaging orders and Results/Orders obtained Established Patient Charge Established Patient Point Assignment: 80 Established Patient Point Charge: Level 3 (80-115)
== END 2025-06-15 16:05 | disposition home or self-care (01) ==
LOC: HODAHC 15:04
PROVIDERS: Supervising Provider Internal Medicine
DX: Z76.0 Encounter for issue of repeat prescription (principal); E11.22 Type 2 diabetes mellitus with diabetic chronic kidney disease; I12.9 Hypertensive chronic kidney disease with stage 1 through stage 4 chronic kidney disease, or unspecified chronic kidney disease; N18.9 Chronic kidney disease, unspecified; D25.9 Leiomyoma of uterus, unspecified; Z79.4 Long term (current) use of insulin
CPT/HCPCS: 99213; G0463

== ENCOUNTER 2025-06-20 10:54 | Outpatient (AMB) | payer MEDICAID, SELFPAY ==
--- NOTE | 2025-06-21 08:20 | GYNCLNT_ITS ---
Vital Signs 06/21/25 08:24 Height 1.68 m Height Method Stated Weight 83.71 kg Weight Measurement Method Standing Scale BMI 29.6 BP 126/80 Blood Pressure Source Automatic Cuff Blood Pressure Location Left Upper Arm Position Sitting Respiration 16 Pulse 88 Pulse Source Monitor Temp 97.8 F Temp Source Oral Pulse Oximetry (%) 98 Oxygen Delivery Method Room Air Allergies/Home Meds Allergies & Medications Allergies No Known Allergies Allergy (Verified 06/21/25 08:24) Medication Reconciliation lidocaine 5 % topical patch 3 patch topical QDAY #30 ea 01/14/25 [Rx Confirmed 06/21/25] ptijsipg-milztzqwm-fdmyplvbo 3.5 mg-10,000 unit/mL-1 % ear drops,susp 4 drp Left ear Q8H #10 mL 04/04/25 [Rx Confirmed 06/21/25] aspirin 81 mg chewable tablet 81 mg PO QDAY 30 days #30 tabs 06/15/25 [Rx Con firmed 06/21/25] blood-glucose sensor (FreeStyle Mike 3 Sensor device) #2 ea 06/15/25 [Rx Confirmed 06/21/25] chlorthalidone 25 mg tablet 25 mg PO QDAY #30 tabs 06/15/25 [Rx Confirmed 06/21/25] cholecalciferol (vitamin D3) 1,250 mcg (50,000 unit) capsule 1,250 mcg PO QWEEK #4 caps 06/15/25 [Rx Confirmed 06/21/25] dapagliflozin propanediol 10 mg tablet (Farxiga) 10 mg PO QAM #30 tabs 06/15/25 [Rx Confirmed 06/21/25] ferrous sulfate 325 mg (65 mg iron) tablet 325 mg PO QDAY anemia #30 tabs 06/15/25 [Rx Confirmed 06/21/25] insulin glargine 100 unit/mL (3 mL) subcutaneous pen 18 unit (0.18 mL) subcut QPM #15 mL 06/15/25 [Rx Confirmed 06/21/25] losartan 100 mg tablet 100 mg PO QDAY HTN #30 tabs 06/15/25 [Rx Confirmed 06/21/25] pen needle, diabetic 29 gauge x 1/2 (Pen Needle) #100 ea 06/15/25 [Rx Confirmed 06/21/25] semaglutide 1 mg/dose (4 mg/3 mL) subcutaneous pen injector (Ozempic) 1 mg (0.75 mL) subcut QWEEK #3 mL 06/15/25 [Rx Confirmed 06/21/25] spironolactone 50 mg tablet (Aldactone) 50 mg PO QDAY #90 tabs 06/15/25 [Rx Confirmed 06/21/25] Intake Visit Data Collection New Patient or Established: Established Patient (seen at [facility] within 3 years) Reason for Visit:: DISCUSS ULTRASOUND RESULTS Seen by Clinical Staff ONLY (RN/MA): No Electrical Mechanical Technician Required: No Do You Feel Safe at Home: Yes Authorities Contacted: N/A PCP or OBGYN visit in last 3 months: Yes Hx Now: No Are you currently on any form of Control: No Last menstrual period: 04/30/25 Pain Present Currently: No Pain Scale Used: [employer]/Numerical Pain scale:: 0 Smoking Status Smoking Status: Smoker, status unknown 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 Menstrual regularity: irregular Flow: heavy Monthly: No How many days does period last: 8 Age at menarche: 12 Currently sexually active: Yes 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: Past Medical History Past Medical History: No Hx Neurological Disorders, No Hx Hypothyroidism, No Hx Hyperthyroidism, No Hx Breast Cancer, Yes Hx Cardiac Disorders, Yes Hx Hypertension, No Hx Cancer, No Hx Blood Disorders, Yes Hx Anemia, No Hx Gastrointestinal Disorders, No Hx Renal Disease, No Hx Deep Vein Thrombosis, No Hx Diabetes Mellitus Type 1, Yes Hx Diabetes Mellitus Type 2, No Hx Tubal Ligation, No Hx Hysterectomy and No Psychiatric Problems Questionnaires Covid-19 Vaccine Questionnaire Has patient been vacinated for Covid-19 Have you been vacinated for Covid-19: No PHQ-9 PHQ-2 Over the last 2 weeks, how often have you been bothered by any of the following problems? 1. Little interest or pleasure in doing things: not at all 2. Feeling down, depressed, or hopeless: not at all Total score: 0 PHQ-9 3. Trouble falling or staying asleep, or sleeping too much: Not at all 4. Feeling tired or having little energy: Not at all 5. Poor appetite or overeating: Not at all 6. Feeling bad about yourself - or that you are a failure or have let yourself or your family down: Not at all 7. Trouble concentrating on things, such as reading the newspaper or watching television: Not at all 8. Moving or speaking so slowly that other people could have noticed? - Or the opposite - being so fidgety or restless that you have been moving around a lot more than usual: not at all 9. Thoughts that you would be better off or of hurting yourself in some way: Not at all Total score: 0 Source: Developed by Drs. Mani Mclaughlin, Loyda Arevalo, Nick Mcgregor and colleagues, with an educational jessie from [employer]. 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 Tobacco History Smoking Status: Smoker, status unknown Alcohol History Alcohol Intake: Never Alcohol Intake Frequency: holidays/special occasions only Substance Use History Substance Use: Vapes MJ Domestic Abuse History Do You Feel Safe at Home: Yes History of Present Illness HPI Narrative The patient is a 40-year-old G0 who presented with menorrhagia and some dysmenorrhea. This is her third visit in to see me. Last month when I saw her did a Pap smear and I examined her and she has a 3 x 3 cm fibroid protruding from her os. I authorized for a hysteroscopy, dilation, curettage NovaSure ablation and myomectomy. Patient states she would like to talk about this case a little bit more. She has a complicated past medical history including hypertension, chronic kidney disease, and insulin requiring diabetes. She is not an ideal candidate for hysterectomy. The patient would also like to proceed with tubal ligation. She is 100% sure she does not want children. She did sign tubal ligation papers in the office today. She understands the permanency of the procedure, the risk of failure of 1% and the increased risk of ectopic should failure occur. We will authorize for a tubal ligation, hysteroscopy, dil ation, curettage, NovaSure ablation and removal of protruding fibroid from endocervical canal. Review of Systems Review of Systems Narrative Review of Systems: Patient continues to have heavy cycles monthly with some dysmenorrhea. Results Objective Laboratory: Pap from 05/04/2025 reviewed: normal Pap smear /HPV negative/ GC chlamydia Assessment & Plan Diagnosis / Problem List (1) Menorrhagia with regular cycle: Status: Acute Plan: Patient has already been authorized for hysteroscopy, dilation, curettage, NovaSure ablation and cervical myomectomy. Add laparoscopic bilateral salpingectomies to procedure and reauthorize as patient desires permanent sterilization. Tubal ligation papers signed today. Patient was given a copy. (2) DUB (dysfunctional uterine bleeding): Status: Acute (3) Uterine fibroid: Status: Acute Qualifiers: Uterine leiomyoma location: unspecified location Qualified Code(s): D25.9 - Leiomyoma of uterus, unspecified Additional Plan Follow Up: 4 Weeks
[2025-06-21 08:24] VITALS: BP 126/80; PULSE 88; RESP 16; TEMP 36.6; O2SAT 98; BMI 29.6
== END 2025-06-20 11:24 | disposition home or self-care (01) ==
LOC: HODSOBC 10:54
PROVIDERS: Supervising Provider Obstetrics & Gynecology; Visit Provider Obstetrics & Gynecology
DX: D25.9 Leiomyoma of uterus, unspecified (principal); N92.0 Excessive and frequent menstruation with regular cycle; Z30.2 Encounter for sterilization; I10 Essential (primary) hypertension; E11.9 Type 2 diabetes mellitus without complications; Z79.4 Long term (current) use of insulin; Z79.899 Other long term (current) drug therapy
CPT/HCPCS: 99213; 99214; G0463

== ENCOUNTER 2025-06-29 13:06 | Outpatient (AMB) | payer MEDICAID, SELFPAY ==
[2025-06-29 13:23] VITALS: BP 146/88; PULSE 93; RESP 17; TEMP 36.3; O2SAT 97; BMI 29.2
--- NOTE | 2025-06-29 13:23 | PD.RESCLINIC ---
Vital Signs 06/29/25 13:23 Height 1.68 m Height Method Stated Weight 82.554 kg Weight Measurement Method Standing Scale BMI 29.2 BP 146/88 H Blood Pressure Source Automatic Cuff Blood Pressure Location Right Upper Arm Position Sitting Respiration 17 Pulse 93 Pulse Source Monitor Temp 97.3 F Temp Source Temporal Artery Scan Pulse Oximetry (%) 97 Oxygen Delivery Method Room Air Allergies/Meds Allergies & Medications Allergies No Known Allergies Allergy (Verified 06/29/25 13:24) Medication Reconciliation lidocaine 5 % topical patch 3 patch topical QDAY #30 ea 01/14/25 [Rx Confirmed 06/29/25] aspirin 81 mg chewable tablet 81 mg PO QDAY 30 days #30 tabs 06/15/25 [Rx Confirmed 06/29/25] blood-glucose sensor (FreeStyle Mike 3 Sensor device) #2 ea 06/15/25 [Rx Confirmed 06/29/25] chlorthalidone 25 mg tablet 25 mg PO QDAY #30 tabs 06/15/25 [Rx Confirmed 06/29/25] cholecalciferol (vitamin D3) 1,250 mcg (50,000 unit) capsule 1,250 mcg PO QWEEK #4 caps 06/15/25 [Rx Confirmed 06/29/25] dapagliflozin propanediol 10 mg tablet (Farxiga) 10 mg PO QAM #30 tabs 06/15/25 [Rx Confirmed 06/29/25] ferrous sulfate 325 mg (65 mg iron) tablet 325 mg PO QDAY anemia #30 tabs 06/15/25 [Rx Confirmed 06/29/25] insulin glargine 100 unit/mL (3 mL) subcutaneous pen 18 unit (0.18 mL) subcut QPM #15 mL 06/15/25 [Rx Confirmed 06/29/25] losartan 100 mg tablet 100 mg PO QDAY HTN #30 tabs 06/15/25 [Rx Confirmed 06/29/25] pen needle, diabetic 29 gauge x 1/2 (Pen Needle) #100 ea 06/15/25 [Rx Confirmed 06/29/25] spironolactone 50 mg tablet (Aldactone) 50 mg PO QDAY #90 tabs 06/15/25 [Rx Confirmed 06/29/25] albuterol sulfate 90 mcg/actuation aerosol inhaler (Ventolin HFA) 2 puff inhalation QID PRN shortness of breath or wheezing #8.5 grams 06/29/25 [Rx] guaifenesin 100 mg/5 mL oral liquid 200 mg (10 mL) PO Q4H PRN cough #473 mL 06/29/25 [Rx] semaglutide 2 mg/dose (8 mg/3 mL) subcutaneous pen injector 2 mg (0.75 mL) subcut QWEEK Diabetes Mellitus Type 2 3 months #9.75 mL 06/29/25 [Rx] CHRISTIN Intake Visit Data Collection New Patient or Established: Established Patient (seen at [facility] within 3 years) Seen by Clinical Staff ONLY (RN/MA): No Reason for Visit:: COUGH/PHLEGM Pain scale:: 0 Pain Scale Used: [employer]/Numerical Strategic Debriefing Specialist Required: No PCP or OBGYN visit in last 3 months: Yes Date of Last PCP or OBGYN visit: 06/21/25 Hx Now: No Date of Last Menstrual Period: 06/04/25 Do You Feel Safe at Home: Yes Authorities Contacted: N/A Smoking Status Smoking Status: Smoker, status unknown Immunization / Flu Flu Vaccine in the Last 12 Months: No Flu Vaccine Exclusion Criteria: No Exclusion Criteria Past Medical History Past Medical History NEUROLOGIC: Negative Neurological Disorders, Cerebrovascular Accident, Transient Ischemic Attacks (TIA), Dementia, Alzheimer's Disease, Parkinson's Disease, Brain Tumor, Meningitis, Seizures, Epilepsy, Multiple Sclerosis, Cerebral Palsy, Amyotrophic Lateral Sclerosis (ALS/Gertrude Gehrig's), Guillain-[place] Syndrome, Spina Bifida, Paralysis, Peripheral Neuropathy, Burrows's Palsy, Subdural Hematoma, Migraine, Head Trauma, Spinal Cord Injury or Traumatic Brain Injury CARDIAC: Positive Cardiac Disorders, Edema and Hypertension; Negative Myocardial Infarction, Cardiac Arrhythmia, Atrial Fibrillation, Angina, Heart Murmur, Coronary Artery Disease, Atherosclerotic Heart Disease, Peripheral Vascular Disease, Hypercholesterolemia, Aneurysm, Congestive Heart Failure, Congenital Heart Disease, Valvular Heart Disease, Rheumatic Fever, Cardiomyopathy, Pericarditis, Cellulitis, Deep Vein Thrombosis, Hypotension or Varicose Veins RESPIRATORY: Negative Chronic Obstructive Pulmonary Disease (COPD), Asthma, Bronchitis, Emphysema, Pneumonia, Pulmonary Fibrosis, Cystic Fibrosis, Tuberculosis, Pulmonary Embolism, Pulmonary Edema or Sleep Apnea GASTROINTESTINAL: Negative Gastrointestinal Disorders, Hepatitis, Cirrhosis, Pancreatitis, Celiac Disease, Gall Bladder Disease, Gastrointestinal Bleed, Esophageal Varices, Johnston's Esophagus, Colitis, Ulcerative Colitis, Diverticulitis, Diverticulosis, Ulcer, Colorectal Cancer, Irritable Bowel, Crohn's Disease, Obstructive Bowel, Hiatal Hernia, Hemorrhoids, Gastroesophageal Reflux Disease or Obesity GENITOURINARY: Negative Genitourinary Disorders, Renal Disease, Kidney Stones, Polycystic Kidney Disease, Neurogenic Bladder, Inguinal Hernia, Dialysis or Prostate Cancer REPRODUCTIVE: Negative Breast Cancer, Endometriosis, Genital Herpes, Gonorrhea, Pelvic Inflammatory Disease, Previous Pregnancies, Syphilis, Testicular Cancer or Uterine Prolapse MUSCULOSKELETAL: Negative Muscular Dystrophy, Myasthenia Gravis, Marfan's Syndrome, Bone Cancer, Arthritis, Rheumatoid Arthritis, Osteoporosis, Degenerative Disk Disease, Gout, Scoliosis, Carpal Tunnel Syndrome, Fibromyalgia, Fractures, Degenerative Joint Disease, Osteomyelitis or Poliovirus ENT: Negative Cataracts, Glaucoma, Blind, Retinal Detachment, Macular Degeneration, Ear Infection, Deafness, Head Trauma or Eye Prosthesis ENDOCRINE: Positive Endocrine Disorders and Diabetes Mellitus Type 2; Negative Diabetes Mellitus Type 1, Hypoglycemia, Masood's Syndrome, Patillas's Disease, Hyperthyroidism, Hypothyroidism, Parathyroid Disease, Pituitary Disease, Systemic Lupus Erythematosus, Syndrome of Inappropriate Antidiuretic Hormone (SIADH), Adrenal Disease or Graves' Disease HEMATOLOGIC: Positive Anemia; Negative Blood Disorders, Leukemia, Hemophilia, Thalassemia, Sickle Cell Disease or Clotting Problems PSYCHO/SOCIAL: Positive Depression and Anxiety; Negative Psychiatric Problems, Schizophrenia, Recreational Drug Use, Bipolar Disorder, Behavior Problems, Self-Mutilation, Attention Deficit Disorder, Attention Deficit Hyperactivity Disorder, Depression, Post Traumatic Stress Disorder or Eating Disorder OTHER HISTORY: Negative Down Syndrome, Autism, Developmental Delay, Shingles, Falls, Blood Transfusions, Blood Transfusion Reaction, Anesthesia Reactions, Organ Transplant, Chemotherapy, Radiation Therapy, Hyperbaric Therapy, MRSA, VRSA, Vancomycin-Resistant Enterococci, Human Immunodeficiency Virus (HIV), Chicken Pox, Measles, Mumps, Rubella (Ghanaian Measles), Pertussis, Clostridium Difficile, Cancer, Breast Cancer, Cervical Cancer, Colorectal Cancer, Lung Cancer, Ovarian Cancer, Prostate Cancer or Testicular Cancer Family History FAMILY HISTORY: Negative Family Psychiatric Problems, Family Respiratory Disorders, Family Cardiac Disorders, Family Gastrointestinal Problems, Family Cancer, Family Surgery or Family Anesthesia Reaction Surgical History SURGICAL: Negative Cardiac Surgery, Open Heart Surgery, Coronary Artery Bypass Graft, Valve Replacement, Vascular Surgery, Coronary Stent, Cardiac Catheterization, Pacemaker, Angiogram, Auto Implanted Cardiovert Defib, Carotid Endarterectomy, Endocrine Surgery, Thyroidectomy, Ear Surgery, Tympanostomy Tube, Eye Surgery, Nose Surgery, Oral Surgery, Tonsillectomy, Adenoidectomy, Cochlear Implant, Corneal Transplant, Throat Surgery, Abdominal Surgery, Tracheostomy, Gastric Bypass Surgery, Gastrostomy, Bowel Surgery, Nephrectomy, Transurethral Resection, Joint Replacement, Amputation, Open Reduction Internal Fixation, Arthroscopy, Neurologic Surgery, Mastectomy, Lumpectomy, Hysterectomy, Tubal Ligation, Section or Organ Transplant Social History SMOKING STATUS: Smoking status: Smoker, status unknown SECOND HAND EXPOSURE: second hand exposure: No ALCOHOL: Alcohol Intake: Never ALCOHOL FREQUENCY: Alcohol Intake Frequency: holidays/special occasions only HOUSING: Housing: Apartment LIVES WITH: Lives With: Family Patient Portal Questionaires PHQ-9 PHQ-2 Over the last 2 weeks, how often have you been bothered by any of the following problems? 1. Little interest or pleasure in doing things: not at all 2. Feeling down, depressed, or hopeless: not at all Total score: 0 PHQ-9 3. Trouble falling or staying asleep, or sleeping too much: Not at all 4. Feeling tired or having little energy: Not at all 5. Poor appetite or overeating: Not at all 6. Feeling bad about yourself - or that you are a failure or have let yourself or your family down: Not at all 7. Trouble concentrating on things, such as reading the newspaper or watching television: Not at all 8. Moving or speaking so slowly that other people could have noticed? - Or the opposite - being so fidgety or restless that you have been moving around a lot more than usual: not at all 9. Thoughts that you would be better off or of hurting yourself in some way: Not at all Total score: 0 If you checked off any problems, how difficult have these problems made it for you to do your work, take care of things at home, or get along with other people?: not difficult at all Source: Developed by Drs. Mani Mclaughlin, Loyda Arevalo, Nick Mcgregor and colleagues, with an educational jessie from [employer]. 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 Tobacco History Smoking Status: Smoker, status unknown Second Hand Smoke Exposure: No Alcohol History Alcohol Intake: Never Alcohol Intake Frequency: holidays/special occasions only Substance Use History Substance Use: Vapes MJ Domestic Abuse History Do You Feel Safe at Home: Yes Review of Systems Report any current symptoms Only answer those that you have currently: Past Medical History Past Medical History Have you ever been diagnosed with any of the following: Neurological Problems Cerebrovascular Accident (CVA): No Transient Ischemic Attacks (TIA): No Dementia: No Alzheimer's Disease: No Parkinson's Disease: No Brain Tumor: No Meningitis: No Seizures: No Epilepsy: No Multiple Sclerosis: No Cerebral Palsy: No Amyotrophic Lateral Sclerosis (ALS/Gertrude Gehrig's): No Guillain-[place] Syndrome: No Spina Bifida: No Paralysis: No Peripheral Neuropathy: No Burrows's Palsy: No Subdural Hematoma: No Migraine: No Head Trauma: No Spinal Cord Injury: No Traumatic Brain Injury: No Cardiology Problems Myocardial Infarction: No Cardiac Arrhythmia: No Atrial Fibrillation: No Angina: No Heart Murmur: No Coronary Artery Disease: No Atherosclerotic Heart Disease: No Peripheral Vascular Disease: No Hypercholesterolemia: No Aneurysm: No Congestive Heart Failure: No Congenital Heart Disease: No Valvular Heart Disease: No Rheumatic Fever: No Cardiomyopathy: No Edema: Yes Pericarditis: No Cellulitis: No Deep Vein Thrombosis: No Hypertension: Yes Hypotension: No Varicose Veins: No Respiratory Problems Chronic Obstructive Pulmonary Disease (COPD): No Asthma: No Bronchitis: No Emphysema: No Pneumonia: No Pulmonary Fibrosis: No Tuberculosis: No Pulmonary Embolism: No Pulmonary Edema: No Sleep Apnea: No Stomache/Intestinal Problems Hepatitis: No Cirrhosis: No Pancreatitis: No Celiac Disease: No Gall Bladder Disease: No Gastrointestinal Bleed: No Esophageal Varices: No Johnston's Esophagus: No Colitis: No Ulcerative Colitis: No Diverticulitis: No Diverticulosis: No Ulcer: No Colorectal Cancer: No Irritable Bowel: No Crohn's Disease: No Obstructive Bowel: No Hiatal Hernia: No Hemorrhoids: No Gastroesophageal Reflux Disease: No Obesity: No Genital/Urinary Problems Renal Disease: No Kidney Stones: No Polycystic Kidney Disease: No Neurogenic Bladder: No Inguinal Hernia: No Dialysis: No Reproductive Problems Breast Cancer: No Endometriosis: No Genital Herpes: No Gonorrhea: No Pelvic Inflammatory Disease: No Previous Pregnancies: No Syphilis: No Uterine Prolapse: No Musculoskeletal Problems Muscular Dystrophy: No Myasthenia Gravis: No Marfan's Syndrome: No Bone Cancer: No Arthritis: No Rheumatoid Arthritis: No Osteoporosis: No Degenerative Disk Disease: No Gout: No Scoliosis: No Carpal Tunnel Syndrome: No Fibromyalgia: No Fractures: No Degenerative Joint Disease: No Osteomyelitis: No Poliovirus: No Head,Eye,Nose,Throat Problems Cataracts: No Glaucoma: No Blind: No Retinal Detachment: No Macular Degeneration: No Chronic Ear Infections: No Deafness: No Eye Prosthesis: No Endocrine Problems Diabetes Mellitus Type 1: No Diabetes Mellitus Type 2: Yes Hypoglycemia: No [place]'s Syndrome: No Patillas's Disease: No Hyperthyroidism: No Hypothyroidism: No Parathyroid Disease: No Pituitary Disease: No Systemic Lupus Erythematosus: No Syndrome of Inappropriate Antidiuretic Hormone: No Adrenal Disease: No Graves' Disease: No Blood Problems Anemia: Yes Leukemia: No Hemophilia: No Thalassemia: No Sickle Cell Disease: No Clotting Problems: No Psychologic Problems Schizophrenia: No Recreational Drug Use: No Bipolar Disorder: No Depression: Yes Anxiety: Yes Behavior Problems: No Self-Mutilation: No Attention Deficit Disorder: No Attention Deficit Hyperactivity Disorder: No Depression: No Post Traumatic Stress Disorder: No Eating Disorder: No Other Problems Down Syndrome: No Autism: No Developmental Delay: No Shingles: No Falls: No Blood Transfusions: No Blood Transfusion Reaction: No Anesthesia Reactions: No Organ Transplant: No Chemotherapy: No Radiation Therapy: No Hyperbaric Therapy: No MRSA: No VRSA: No Vancomycin-Resistant Enterococci: No Human Immunodeficiency Virus (HIV): No Chicken Pox: No Measles: No Mumps: No Rubella (Ghanaian Measles): No Pertussis: No Clostridium Difficile: No Cancer: No Cervical Cancer: No Lung Cancer: No Ovarian Cancer: No Surgical History Carotid Endarterectomy: No Coronary Artery Bypass Graft: No Valve Replacement: No Hysterectomy: No Pacemaker: No Thyroidectomy: No History of Present Illness HPI Narrative Ms Bueno is a 40-year-old female with past medical history of 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 Patient reported that she was diagnosed with COVID-19 more than a month ago, tested positive for home test denies taking any Paxlovid, reports that post COVID she continued to have cough which recently worsened she complains of excessive sputum production and wheezing on and off, also reports generalized weakness and myalgias denies any fever. For her diabetes management patient is on dapagliflozin, semaglutide 1 mg q. weekly and Lantus 16 to 18 units as needed. Patient uses [employer] mike CGM average glucose per CGM readings for 90 days is 130, time in target range is 94% and her GMI is 6.4%. Patient is compliant with her diabetes medication, reports following up with Dr. Chacon car pick up driver, Dr. Madden for CKD but has not seen a master barber, no symptoms of diabetic neuropathy. Will refer for once a year checkup. Patient's blood pressure is well-controlled on spironolactone 50 mg daily, losartan 100 mg daily, chlorthalidone 25 mg daily. On iron supplement for iron deficiency anemia and prophylactic aspirin for elevated ASCVD risk. Patient reports to be compliant with her medication. Review of Systems Review of Systems Systems Reviewed: All systems reviewed, normal except as documented Objective/Exam Narrative Physical exam: Physical Exam General: Awake and in no acute distress. Conversational and non-toxic appearing. HEENT: Normocephalic, atraumatic, mucous membranes moist. Heart: Regular rate and rhythm, no murmurs. Lungs: Clear to auscultation with bilateral wheezing. Abdomen: Soft, nondistended, nontender, positive bowel sounds. ?No guarding or rebound tenderness. Neurologic: Alert and oriented x3, no gross neurological deficit, and patient able to move all 4 extremities. Extremities: No edema. Skin: No rash or ecchymoses. Assessment & Plan Diagnosis / Problem List (1) Community acquired pneumonia: Status: Acute Qualifiers: Laterality: unspecified laterality Qualified Code(s): J18.9 - Pneumonia, unspecified organism Assessment & Plan: Was diagnosed with COVID-19 more than a month ago, tested positive for home test denies taking any Paxlovid, reports that post COVID she continued to have cough which recently worsened she complains of excessive sputum production and wheezing on and off, also reports generalized weakness and myalgias denies any fever. Bilateral wheezing and coughing with expectoration noted on exam There is suspicion of community-acquired pneumonia along with possibility of extended post-COVID syndrome however worsening of cough favors diagnosis of Community-acquired pneumonia. Plan: - Augmentin 875? 125 twice daily for 7 days - Prescribed guaifenesin as needed for cough - Prescribed albuterol inhaler as needed for shortness of breath/wheezing - Discussed with patient that if her symptoms worsen to go to the emergency department [facility]. (2) Insulin dependent diabetes mellitus: Status: Chronic Assessment & Plan: Patient has established diagnosis of diabetes mellitus, uses CGM [place] CGM readings reviewed for 90 days average blood glucose 130, time in target range is 94% and her GMI is 6.4%. Plan: - Will increase semaglutide to 2 mg/week - Continue Lantus 16 to 18 units as needed, dapagliflozin. - Continue CGM (3) Complication of diabetes mellitus: Status: Chronic Assessment & Plan: Patient has been diagnosed with chronic complications of diabetes mellitus?CKD and ophthalmology complication Plan: - Continue spironolactone 50 mg daily and dapagliflozin for renal protective effect - Continue to follow-up with brazing machine feeder Dr. Madden - Continue to follow-up with ophthalmology - Will be referred to podiatry for once a year checkup - Continue daily aspirin 81 mg - Continue vitamin D supplementation. (4) CKD (chronic kidney disease): Status: Chronic Qualifiers: Chronic kidney disease stage: stage 3 (moderate) Chronic kidney disease stage 3 subtype: stage 3a (GFR 45-59) Qualified Code(s): N18.31 - Chronic kidney disease, stage 3a Assessment & Plan: Patient has been diagnosed with CKD is established with nephrology Patient's renal panel 12/28/2024 BUN 23, creatinine 1.2, GFR 59 ~CKD stage IIIa Plan: - Plan as above (5) Hypertension: Status: Chronic Qualifiers: Hypertension type: primary hypertension Qualified Code(s): I10 - Essential (primary) hypertension Assessment & Plan: Elevated blood pressure reading noted today Patient reports her blood pressure is within normal limits at home otherwise Plan: - Continue losartan 100 mg, spironolactone 50 mg and chlorthalidone 25 mg daily (6) Iron deficiency anemia: Status: Chronic Qualifiers: Iron deficiency anemia type: unspecified iron deficiency Qualified Code(s): D50.9 - Iron deficiency anemia, unspecified Assessment & Plan: Patient has been diagnosed with iron deficiency anemia is on iron tablets, also possibly element of anemia of chronic disease due to CKD Plan: - Continue iron tablets Plan Case discussed with Attending Physician Dr. Watson Lockhart MD Internal Medicine PGY-2 Disclaimer: This note was dictated by speech recognition. Minor errors in supervisor order takers may be present due to voice recognition software. Orders: Referrals Podiatry E11.8 - Type 2 diabetes mellitus with unspecified complications Office Procedures [facility] Level of Care Nursing/Assessment Patient Status: Established Patient Nursing Assessment/Reassessment: Medication Reconciliation, Update PMH in EMR and Vital Signs Coordination of Care: Complex Care and Chronic Disease 1-5, Education Complex Pt/Fam, Consent,records obtained, informed consent, Results/Orders obtained and Staff clarify orders Established Patient Charge Established Patient Point Assignment: 95 Established Patient Point Charge: Level 3 (80-115) TB Screening LTBI Screening: Has patient traveled, was born, or resided for at least 1 month, or frequent border crossing into a country with an elevated TB rate: No Immunosuppression, current or planned (HIV, organ transplant, treated with biologic agents, steroids, or other immunosuppression medication): No Close contact to someone with infectious TB disease during lifetime: No Homelessness or incarceration, current or past: No TB testing indicated at this time (at least 1 yes above): No
== END 2025-06-29 13:39 | disposition home or self-care (01) ==
LOC: HODAHC 13:06
PROVIDERS: Supervising Provider Internal Medicine; Visit Provider Internal Medicine
DX: J18.9 Pneumonia, unspecified organism (principal); I12.9 Hypertensive chronic kidney disease with stage 1 through stage 4 chronic kidney disease, or unspecified chronic kidney disease; E11.22 Type 2 diabetes mellitus with diabetic chronic kidney disease; N18.31 Chronic kidney disease, stage 3a; Z79.4 Long term (current) use of insulin; D50.9 Iron deficiency anemia, unspecified
CPT/HCPCS: 99213; G0463

== ENCOUNTER 2025-08-15 13:28 | Outpatient (AMB) | payer MEDICAID, SELFPAY ==
[2025-08-15 13:35] VITALS: BP 136/85; PULSE 80; RESP 18; TEMP 36.2; O2SAT 98; BMI 29.6
--- NOTE | 2025-08-15 13:35 | GYNCLNT_ITS ---
Vital Signs 08/15/25 13:35 Height 1.68 m Height Method Stated Weight 83.688 kg Weight Measurement Method Standing Scale BMI 29.6 BP 136/85 H Blood Pressure Source Automatic Cuff Blood Pressure Location Left Upper Arm Position Sitting Respiration 18 Pulse 80 Pulse Source Monitor Temp 97.2 F Temp Source Oral Pulse Oximetry (%) 98 Oxygen Delivery Method Room Air Allergies/Home Meds Allergies & Medications Allergies No Known Allergies Allergy (Verified 08/15/25 13:36) Medication Reconciliation lidocaine 5 % topical patch 3 patch topical QDAY #30 ea 01/14/25 [Rx Confirmed 08/15/25] blood-glucose sensor (FreeStyle Mike 3 Sensor device) #2 ea 06/15/25 [Rx Confirmed 08/15/25] chlorthalidone 25 mg tablet 25 mg PO QDAY #30 tabs 06/15/25 [Rx Confirmed 08/15/25] cholecalciferol (vitamin D3) 1,250 mcg (50,000 unit) capsule 1,250 mcg PO QWEEK #4 caps 06/15/25 [Rx Confirmed 08/15/25] dapagliflozin propanediol 10 mg tablet (Farxiga) 10 mg PO QAM #30 tabs 06/15/25 [Rx Confirmed 08/15/25] ferrous sulfate 325 mg (65 mg iron) tablet 325 mg PO QDAY anemia #30 tabs 06/15/25 [Rx Confirmed 08/15/25] insulin glargine 100 unit/mL (3 mL) subcutaneous pen 18 unit (0.18 mL) subcut QPM #15 mL 06/15/25 [Rx Confirmed 08/15/25] losartan 100 mg tablet 100 mg PO QDAY HTN #30 tabs 06/15/25 [Rx Confirmed 08/15/25] pen needle, diabetic 29 gauge x 1/2 (Pen Needle) #100 ea 06/15/25 [Rx Confirmed 08/15/25] spironolactone 50 mg tablet (Aldactone) 50 mg PO QDAY #90 tabs 06/15/25 [Rx Confirmed 08/15/25] albuterol sulfate 90 mcg/actuation aerosol inhaler (Ventolin HFA) 2 puff inhalation QID PRN shortness of breath or wheezing #8.5 grams 06/29/25 [Rx Confirmed 08/15/25] guaifenesin 100 mg/5 mL oral liquid 200 mg (10 mL) PO Q4H PRN cough #473 mL 06/29/25 [Rx Confirmed 08/15/25] semaglutide 2 mg/dose (8 mg/3 mL) subcutaneous pen injector 2 mg (0.75 mL) subcut QWEEK Diabetes Mellitus Type 2 3 months #9.75 mL 06/29/25 [Rx Confirmed 08/15/25] hydrocodone 5 mg-acetaminophen 325 mg tablet 1 tab PO Q6H PRN pain #20 tabs 08/15/25 [Rx] Intake Visit Data Collection New Patient or Established: Established Patient (seen at [facility] within 3 years) Reason for Visit:: Pre op visit Consent obtained for Telemed Visit: No Seen by Clinical Staff ONLY (RN/MA): No Gaming Associate Required: No Do You Feel Safe at Home: Yes Authorities Contacted: N/A PCP or OBGYN visit in last 3 months: Yes Date of Last PCP or OBGYN visit: 06/29/25 Hx Now: No Are you currently on any form of Control: No Pain Present Currently: No Pain Scale Used: Quintero-Warner/Numerical Pain scale:: 0 Smoking Status Smoking Status: Never smoker Immunizations Flu Vaccine in the Last 12 Months: No Flu Vaccine Exclusion Criteria: No Exclusion Criteria 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 Menstrual regularity: regular Flow: normal Monthly: Yes Age at menarche: 12 Menopausal: No Currently sexually active: Yes If not currently sexually active, have you ever been sexually active: No PULLER OVER: Past Medical History Past Medical History: Yes Hx Cardiac Disorders, Yes Hx Hypertension, Yes Hx Anemia and Yes Hx Diabetes Mellitus Type 2 Additional Operations/Hospitalizations (year & reason): Kidney biopsy Surgical removal of necrotizing fasciitis Other Relevant History: Chronic hypertension: On spironolactone, chlorathiadone and losartan Chronic kidney disease stage IIIa on Farxiga Diabetes: on sliding scale insulin 14 units and Ozempic Questionnaires PHQ-9 PHQ-2 Over the last 2 weeks, how often have you been bothered by any of the following problems? 1. Little interest or pleasure in doing things: not at all 2. Feeling down, depressed, or hopeless: not at all Total score: 0 PHQ-9 3. Trouble falling or staying asleep, or sleeping too much: Not at all 4. Feeling tired or having little energy: Not at all 5. Poor appetite or overeating: Not at all 6. Feeling bad about yourself - or that you are a failure or have let yourself or your family down: Not at all 7. Trouble concentrating on things, such as reading the newspaper or watching television: Not at all 8. Moving or speaking so slowly that other people could have noticed? - Or the opposite - being so fidgety or restless that you have been moving around a lot more than usual: not at all 9. Thoughts that you would be better off or of hurting yourself in some way: Not at all Total score: 0 If you checked off any problems, how difficult have these problems made it for you to do your work, take care of things at home, or get along with other people?: not difficult at all Source: Developed by Drs. Mani Mclaughlin, Loyda Arevalo, Nick Mcgregor and colleagues, with an educational jessie from [employer]. 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 Tobacco History Smoking Status: Never smoker Second Hand Smoke Exposure: No Alcohol History Alcohol Intake: Never Alcohol Intake Frequency: holidays/special occasions only Substance Use History Substance Use: Vapes MJ Domestic Abuse History Do You Feel Safe at Home: Yes History of Present Illness HPI Narrative The patient is a 40-year-old G0 who presents for preop visit. She has chronic kidney disease and chronic hypertension and diabetes. She does not desire future childbearing is on multiple medications. She desires permanent sterilization in form of a laparoscopic tubal ligation. She has signed tubal ligation papers in the office a couple of months ago. She is here for a preop visit. She also desires a NovaSure ablation for heavy cycles and has a fibroid approximately 3 x 3 cm extruding from her ectocervix. She is consented for a laparoscopic bilateral salpingectomy, hysteroscopy, dilation, curettage, NovaSure ablation and removal of cervical fibroid. Review of Systems Constitutional Comments: Patient reports heavy cycles and cramping with her cycles. She reports some left-sided pelvic pain. Exam General Limitations: no limitations General Appearance: alert, cooperative and well groomed Chest Chest inspection: Present normal inspection and symmetric chest wall rise Resp Respiratory exam: Present normal lung sounds bilaterally Card Cardiovascular exam: Present regular rate, normal rhythm and normal heart sounds Abdominal Abdominal exam: Present soft and normal bowel sounds Extremities Extremities exam: Present normal inspection and full ROM Skin Skin exam: Present warm, dry, intact and normal color Office Procedures OBC Clinic LOC & Office Proc's Nursing/Assessment Patient Status: Established Patient OB Clinic Nursing Assessment: Medication Reconciliation, Update PMH in EMR and Vital Signs OB Clinic Coordination of Care: Consent,records obtained, informed consent, Education Simp Pt/Fam, Lab and Imaging orders, Results/Orders obtained and Staff clarify orders Established Patient Charge Established Patient Point Assignment: 80 Established Patient Point Charge: EP Level 3 (80-115) Assessment & Plan Diagnosis / Problem List (1) Encounter for consultation for female sterilization: Status: Acute Assessment and Plan: Patient is consented for laparoscopic bilateral salpingectomy. The risks of procedure discussed including risk of bleeding infection blood transfusion damage to bowel bladder blood vessels other organs prolonged hospital stay fu rther surgery should above occur. (2) Menorrhagia with regular cycle: Status: Acute Assessment and Plan: Patient is consented for a hysteroscopy, dilation, curettage NovaSure endometrial ablation. (3) DUB (dysfunctional uterine bleeding): Status: Acute Assessment and Plan: Patient is consented for a cervical myomectomy after her ablation. (4) CKD (chronic kidney disease): Status: Chronic Qualifiers: Chronic kidney disease stage: stage 3 (moderate) Chronic kidney disease stage 3 subtype: stage 3a (GFR 45-59) Qualified Code(s): N18.31 - Chronic kidney disease, stage 3a (5) Diabetes type 2, controlled: Status: Acute (6) Hypertension: Status: Chronic Qualifiers: Hypertension type: primary hypertension Qualified Code(s): I10 - Essential (primary) hypertension Additional Plan Follow Up: 2 Weeks
== END 2025-08-15 14:10 | disposition home or self-care (01) ==
LOC: HODSOBC 13:28
PROVIDERS: Supervising Provider Obstetrics & Gynecology; Visit Provider Obstetrics & Gynecology
DX: Z30.2 Encounter for sterilization (principal); N92.0 Excessive and frequent menstruation with regular cycle; N93.8 Other specified abnormal uterine and vaginal bleeding; D21.0 Benign neoplasm of connective and other soft tissue of head, face and neck; I12.9 Hypertensive chronic kidney disease with stage 1 through stage 4 chronic kidney disease, or unspecified chronic kidney disease; E11.22 Type 2 diabetes mellitus with diabetic chronic kidney disease; N18.9 Chronic kidney disease, unspecified
CPT/HCPCS: 99213; G0463

== ENCOUNTER 2025-08-19 06:05 | Day surgery (SDC) | payer MEDICAID, SELFPAY ==
--- NOTE | 2025-08-17 06:55 | EKG_ITS ---
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
[2025-08-17 11:21] VITALS: BMI 30.9
[2025-08-17 12:25] LABS: Basophils # (Auto) 0.1 Thou/mm3 (0.0-0.2); Basophils % (Auto) 1 % (0-2.5); Eosinophils # (Auto) 0.9 Thou/mm3 (0.0-0.5); Eosinophils % (Auto) 9 % (0-10); Hematocrit 40.4 % (36.0-46.0); Hemoglobin 13.3 g/dL (12.0-16.0); Immature Granulocytes Auto 0.02 Thou/mm3 (0.00-0.00); Lymphocytes # (Auto) 3.6 Thou/mm3 (1.0-4.8); Lymphocytes % (Auto) 34 % (10-50); Mean Corpuscular HGB Conc 32.9 g/dl (31.0-37.0); Mean Corpuscular Hemoglobin 28.6 pg (25.0-35.0); Mean Corpuscular Volume 87 fL (80-100); Monocytes # (Auto) 0.6 Thou/mm3 (0.0-0.8); Monocytes % (Auto) 6 % (0-12); Neutrophils # (Auto) 5.2 Thou/mm3 (1.8-7.7); Neutrophils % (Auto) 50 % (37-80); Nucleated Red Blood Cell # 0.00 Thou/mm3 (0.00-0.00); Nucleated Red Blood Cell % 0 /100 WBC (0); Platelet Count 336 Thou/mm3 (140-440); RDW Standard Deviation 40.7 fL (36.4-46.3); Red Blood Count 4.65 Miln/mm3 (4.00-5.20); White Blood Count 10.5 Thou/mm3 (3.6-11.0)
[2025-08-17 12:36] LABS: Alanine Aminotransferase 11 U/L (10-49); Albumin, Serum 4.4 gm/dL (3.5-5.0); Albumin/Globulin Ratio 1.7 (1.2-2.2); Alkaline Phosphatase 49 U/L (46-116); Anion Gap 9 (7-16); Aspartate Amino Transferase 15 U/L (0-34); BUN/Creatinine Ratio 23 Ratio (12-20); Bilirubin,Total 0.6 mg/dL (0.3-1.2); Blood Urea Nitrogen 32 mg/dL (9-23); Calcium 9.7 mg/dL (8.3-10.6); Calcium (Corrected) 9.7 mg/dL (8.5-10.1); Carbon Dioxide 25.7 mMol/L (20.0-31.0); Chloride 106 mMol/L (98-107); Creatinine (Component) 1.4 mg/dL (0.6-1.3); Estimated Creatinine Clearance 56.8 mL/min (>60); Globulin 2.6 gm/dL (2.3-3.5); Glucose 96 mg/dL (74-106); Osmolality,Calculated 288 (275-295); Potassium 4.2 mMol/L (3.4-5.1); Sodium 141 mMol/L (136-145); Total Protein 7.0 gm/dL (5.7-8.2); eGFR 48 See Note
[2025-08-17 12:38] LABS: HCG,Qualitative Serum Negative
[2025-08-19] VITALS (9 sets, daily range): BP systolic 153–177; BP diastolic 89–100; PULSE 76–93; RESP 14–20; TEMP 36.2–36.4; O2SAT 95–99; BMI 31.2
[2025-08-19] MEDS: RINGERS LACTATED 1000 ML 1,000 ML 20 ML IV (06:50)
--- NOTE | 2025-08-19 07:30 | SUR.PREOP ---
Patient expressed gratitude for prayer before their procedure.
--- NOTE | 2025-08-19 09:14 | ESOP_ITS ---
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 Indication: The patient is a 40-year-old G0 presented to the office desiring permanent sterilization. She also reported heavy menses and desired an ablation. As part of her preop workup a Pap smear was performed, patient was found to have a protruding 3 x 3 cm fibroid protruding from her ectocervical os. She was consented for bilateral salpingectomy, hysteroscopy, NovaSure ablation, and removal of cervical fibroid. She was aware of the permanency of a tubal sterilization. She was aware of the risk of failure of 1%, the increased risk of ectopic should failure occur. Patient desired to proceed. Pre-Op diagnosis: 1. Desires permanent sterilization 2. Dysfunctional uterine bleeding 3. Protruding 3 x 3 cm cervical fibroid Post-Op diagnosis: Same Anesthesia type: General Procedure description: After obtaining informed consent, the patient was brought back to the operating room and general anesthesia administered. She was then prepped and draped in the dorsolithotomy position using Vaibhav stirrups in a normal sterile fashion. The patient was given 2 g of Ancef by anesthesia. Her bladder was emptied with an in and out catheter. A weighted speculum was inserted nusrat the patient's vagina and a uterine manipulator inserted. The surgeons gloves were changed, and attention was turned to the patient's abdomen where a 5 mm incision was made in her periumbilical fold. A Veress needle was introduced and correct intra- abdominal placement confirmed via the water drop test. The abdomen was allowed to insufflate with 3 L of CO2 gas. A 5 mm trocar and sleeve were introduced with a 5 mm camera through the umbilical incision and correct intra-abdominal placement visually confirmed. A 5 mm incision was made in her left and right lower quadrant and 5 mm trocar and sleeve introduced into each of these incisions under direct visualization. A blunt probe was placed through one of the instrument ports and pictures taken of the above findings. Patient's right fallopian tube and ovary were found to be normal. Her left fallopian tube was wrapped around her left ovary with filmy adhesions present suggestive of possible endometriosis. She had a fundal fibroid present approximately 4 x 5 cm and a smaller fibroid present approximately 2 x 2 cm. The larger fibroid was intramural, the smaller fibroid was subserosal. The patient's right fallopian tube was identified, followed out to its fimbriated end, elevated using an atraumatic grasper. A harmonic scalpel was then used to transect the entire fallopian tube from the fimbria all the way to the cornual end. A near total portion of the fallopian tube was removed. This was handed through one of the instrument ports and handed off the operating field. Pictures were taken of the post salpingectomy findings. The patient's left fallopian tube was then identified. Part of the fallopian tube was grasped with an atraumatic grasper and all the adhesions were taken down using a harmonic scalpel in order to skeletonize the fallopian tube. The fimbriated end was then elevated and a harm onic scalpel used to transect the entire fallopian tube from the fimbria all the way to the cornual region. The fallopian tube was handed off through one of the instrument ports and pictures taken of the post salpingectomy findings. All of instrumentation was then removed from the patient's abdomen the CO2 gas allowed to resolve. All incisions on the abdomen were closed using subcuticular sutures of 4-0 Monocryl. Attention was then turned to the patient's vaginal area where the uterine manipulator was removed. A weighted speculum was inserted and the cervix grasped with a single toothed tenaculum at the 12 o'clock position. A LEEP electrocautery instrument was used to remove a large portion of the cervical fibroid. This was handed off the operating field. The cervix was then gently dilated using Hegar dilators to a size 9. A 5 mm hysteroscopic camera was introduced into the uterine cavity and pictures taken of the preablation findings. A couple of small polyps were noted but no submucosal fibroids were seen. Both tubal ostia were seen. The cavity was noted to be normal. The NovaSure ablation was then performed. The cavity length measured at 6 cm, the cavity width measured at 4.6 cm. The NovaSure device was turned on and cavity assessment easily passed. The NovaSure cycle was then started and the uterine lining was ablated at a power of 164 W for a total of 57 seconds. At the end of the NovaSure cycle, the NovaSure was removed and the hysteroscopic camera reintroduced and pictures were taken of the postablation findings. A good burn effect was noted in all 4 quadrants of the patient's uterus. The cervix was then treated with rollerball electrocautery where the bed of the fibroid had been removed until excellent hemostasis was noted. S and O hemostatic material was placed across the cervix to obtain excellent hemostasis. All instrumentation was then removed from the patient's vagina and the tenaculum site noted to be hemostatic. The patient tolerated the procedure well, sponge, lap, needle, and instrument counts were correct x 2. The patient went to the recovery area awake and in stable condition pathology was #1 bilateral fallopian tubes #2 Endo cervical fibroid #3 biopsy of cervix. Fluids: crystalloid Fluid amount (mL): 1,000 Urine output (mL): 150 Specimen: left tube, right tube and other (Biopsy of cervix, endocervical fibroid) Implants: None Estimated blood loss (ml): 25 Findings: On laparoscopy, multiple uterine fibroids. Normal right fallopian tube and ovary. Left fallopian tube with evidence of filmy adhesions, possible endometriosis. Left fallopian tube was wrapped around the left ovary. Left ovary with possible endometrioma present. Normal liver Complications: none Surgical staff Operation Date: 08/19/25 07:30 Case Staff Anesthesiologist: Franco Yousif RNaix architect: Bere Robledo Diagnosis Discharge Diagnosis (1) Encounter for consultation for female sterilization: Status: Acute Problem details: Status post laparoscopic salpingectomy (2) Menorrhagia with regular cycle: Status: Acute Problem details: Status post NovaSure ablation (3) Uterine fibroid: Status: Acute Problem details: Status post removal of cervical fibroid (4) DUB (dysfunctional uterine bleeding): Status: Acute Problem List Completed Was Problem List Reviewed/Reconciled?: Yes (3) Uterine fibroid Qualifiers: Uterine leiomyoma location: unspecified location Qualified Code(s): D25.9 - Leiomyoma of uterus, unspecified
--- NOTE | 2025-08-19 09:22 | SUR.PHASEI ---
0922 Patient arrived to recovery resting comfortably in [facility], drowsy and able to arouse with verbal prompting on oxygen 4L via nasal cannula, breathing unlabored, vital signs stable, denies pain and nausea, dressing intact to abdomen; dermabond, no bleeding noted, to vaginal area; peripad, no bleeding noted, report received from Dr. Yousif and Jessica MOREJON
--- NOTE | 2025-08-19 09:32 | SUR.OPER ---
Sabrixasure ablation: Uterine sound - 9cm Cervical length - 3cm Cavity length - 6cm Cavity width - 4.6cm Power setting - 164w Duration - 57 seconds
[2025-08-19] MEDS: ONDANSETRON INJ 2 MG/ML INJ 2 ML 4 MG IVP (10:08)
--- NOTE | 2025-08-19 10:25 | SUR.PHASEII ---
1008 patient endorsed nausea, Zofran 4mg via IVP given per anesthesia order, will monitor 1025 Patient shared her nausea is tolerable, medication effective
--- NOTE | 2025-08-19 10:53 | SUR.PHASEII ---
1053 Patient meets discharge criteria from recovery, awake and alert, breathing unlabored, vital signs stable, denies pain, nausea at a tolerable level per patient, dressing intact; no bleeding noted, patient assisted with dressing into her clohting by her spouse, discharge instructions given to patient and patients , signed discharge instructions. Patient given all her belongings prior to discharge, transported via wheelchair and left in a private vehicle.
== END 2025-08-19 10:53 | disposition home or self-care (01) ==
PROVIDERS: Referring Provider Obstetrics & Gynecology; Visit Provider Obstetrics & Gynecology
PROC: (CPT 58670; principal; 2025-08-19 07:30)
DX: Z30.2 Encounter for sterilization (principal); N84.0 Polyp of corpus uteri; Z01.810 Encounter for preprocedural cardiovascular examination; D25.9 Leiomyoma of uterus, unspecified; E11.22 Type 2 diabetes mellitus with diabetic chronic kidney disease; I12.9 Hypertensive chronic kidney disease with stage 1 through stage 4 chronic kidney disease, or unspecified chronic kidney disease; N18.31 Chronic kidney disease, stage 3a; N93.8 Other specified abnormal uterine and vaginal bleeding; D26.0 Other benign neoplasm of cervix uteri
CPT/HCPCS: 58661; 58563; 57522; 36415; 80053; 84703; 85025; 86850; 86900; 86901; 93005; A4217; A4649; J0131; J0330; J0690; J1100; J1171; J2250; J2371; J2405; J2704; J2765; J3010; J3490; J7120; A9270

== ENCOUNTER 2025-09-06 14:00 | Outpatient (AMB) | payer MEDICAID, SELFPAY ==
--- NOTE | 2025-09-06 14:38 | AMB.GYNCLNOT ---
Vital Signs 09/06/25 14:40 Height 1.65 m Height Method Stated Weight 85.049 kg Weight Measurement Method Standing Scale BMI 31.2 BP 133/79 H Blood Pressure Source Automatic Cuff Blood Pressure Location Right Upper Arm Position Sitting Respiration 18 Pulse 82 Pulse Source Monitor Temp 97.4 F Temp Source Temporal Artery Scan Pulse Oximetry (%) 95 Oxygen Delivery Method Room Air Allergies/Home Meds Allergies & Medications Allergies No Known Allergies Allergy (Verified 09/06/25 14:40) Medication Reconciliation cholecalciferol (vitamin D3) 1,250 mcg (50,000 unit) capsule 1,250 mcg PO QWEEK #4 caps 06/15/25 [Rx Confirmed 09/06/25] ferrous sulfate 325 mg (65 mg iron) tablet 325 mg PO QDAY anemia #30 tabs 06/15/25 [Rx Confirmed 09/06/25] losartan 100 mg tablet 100 mg PO QDAY HTN #30 tabs 06/15/25 [Rx Confirmed 09/06/25] spironolactone 50 mg tablet (Aldactone) 50 mg PO QDAY #90 tabs 06/15/25 [Rx Confirmed 09/06/25] chlorthalidone 25 mg tablet 12.5 mg PO QDAY 08/17/25 [History Confirmed 09/06/25] dapagliflozin propanediol 10 mg tablet (Farxiga) 10 mg PO QAM 08/17/25 [History Confirmed 09/06/25] finerenone 10 mg tablet (Kerendia) 10 mg PO QDAY 08/17/25 [History Confirmed 09/06/25] insulin glargine 100 unit/mL (3 mL) subcutaneous pen 16 unit subcut QPM PRN high glucose 08/17/25 [History Confirmed 09/06/25] semaglutide 1 mg/dose (2 mg/1.5 mL) subcutaneous pen injector 1 mg subcut QWEEK 08/17/25 [History Confirmed 09/06/25] albuterol sulfate 90 mcg/actuation aerosol inhaler 2 puff inhalation Q6H PRN shortness of breath or wheezing 08/19/25 [History Confirmed 09/06/25] ondansetron HCl 4 mg tablet 4 mg PO Q6H PRN nausea and vomiting #30 tabs 08/19/25 [Rx Confirmed 09/06/25] aspirin 81 mg chewable tablet 1 tab PO DAILY #30 tabs 08/31/25 [Rx Confirmed 09/06/25] fluconazole 150 mg tablet 150 mg PO Q3D 1 week #3 tabs 09/06/25 [Rx] nystatin 100,000 unit/gram topical powder 1 applic topical QID #60 grams 09/06/25 [Rx] blood-glucose sensor (FreeStyle Mike 3 Plus Sensor device) #1 ea 09/07/25 [Rx] Intake Visit Data Collection New Patient or Established: Established Patient (seen at [facility] within 3 years) Reason for Visit:: POST OP Seen by Clinical Staff ONLY (RN/MA): No Insurance Follow Up Specialist Required: No Do You Feel Safe at Home: Yes Authorities Contacted: N/A PCP or OBGYN visit in last 3 months: Yes Date of Last PCP or OBGYN visit: 08/15/25 Hx Now: No Are you currently on any form of Control: No Pain Present Currently: No Pain Scale Used: Quintero-Warner/Numerical Pain scale:: 0 Smoking Status Smoking Status: Never smoker Immunizations Flu Vaccine in the Last 12 Months: No Flu Vaccine Exclusion Criteria: No Exclusion Criteria 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 Menstrual regularity: regular Flow: normal Monthly: Yes How many days does period last: 7 Age at menarche: 8 If not currently sexually active, have you ever been sexually active: Yes 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: Past Medical History Past Medical History: Yes Hx Hypertension, Yes Hx Anemia and Yes Hx Diabetes Mellitus Type 2 Additional Operations/Hospitalizations (year & reason): Renal biopsy Surgical removal of necrotizing fasciitis Most recently 08/19/2025 :laparoscopic bilateral salpingectomy, NovaSure ablation and removal of cervical fibroid Other Relevant History: Chronic kidney disease stage IIIa on Farxiga Diabetes on sliding scale insulin and 14 units and Ozempic Chronic hypertension on spironolactone chlorthalidone and losartan Asthma on albuterol Questionnaires Covid-19 Vaccine Questionnaire Has patient been vacinated for Covid-19 Have you been vacinated for Covid-19: No PHQ-9 PHQ-2 Over the last 2 weeks, how often have you been bothered by any of the following problems? 1. Little interest or pleasure in doing things: not at all 2. Feeling down, depressed, or hopeless: not at all Total score: 0 PHQ-9 3. Trouble falling or staying asleep, or sleeping too much: Not at all 4. Feeling tired or having little energy: Not at all 5. Poor appetite or overeating: Not at all 6. Feeling bad about yourself - or that you are a failure or have let yourself or your family down: Not at all 7. Trouble concentrating on things, such as reading the newspaper or watching television: Not at all 8. Moving or speaking so slowly that other people could have noticed? - Or the opposite - being so fidgety or restless that you have been moving around a lot more than usual: not at all 9. Thoughts that you would be better off or of hurting yourself in some way: Not at all Total score: 0 If you checked off any problems, how difficult have these problems made it for you to do your work, take care of things at home, or get along with other people?: not difficult at all Source: Developed by Drs. Mani Mclaughlin, Loyda Arevalo, Nick Mcgregor and colleagues, with an educational jessie from [employer]. 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 Tobacco History Smoking Status: Never smoker Second Hand Smoke Exposure: No Alcohol History Alcohol Intake: Never Alcohol Intake Frequency: holidays/special occasions only Substance Use History Substance Use: Vapes MJ Domestic Abuse History Do You Feel Safe at Home: Yes History of Present Illness HPI Narrative The patient is a 40-year-old G0 with a history of heavy vaginal bleeding. She is high risk she has kidney chronic kidney disease hypertension diabetes. She does not want any children. On exam she had a protruding fibroid coming out of her cervix. She underwent a bilateral laparoscopic salpingectomy, NovaSure endometrial ablation, and removal of a cervical fibroid in the operating room 08/19/2025. Her surgery was uncomplicated she went home there that afternoon. Today the patient reports that she is doing well postop she has no pain ,and no bleeding after surgery. Her pathology was reviewed today revealing unremarkable fallopian tubes, an endometrial polyp with simple hyperplasia, no malignancy and an unremarkable and cervical biopsy. Exam Narrative Physical exam: Abdomen soft nontender nondistended all laparoscopic incisions have completely healed nicely General Limitations: no limitations General Appearance: alert, in no apparent distress, cooperative, healthy appearing and well groomed Chest Chest inspection: Present normal inspection and symmetric chest wall rise Resp Respiratory exam: Present normal lung sounds bilaterally Card Cardiovascular exam: Present regular rate, normal rhythm and normal heart sounds Abdominal Abdominal exam: Present soft and normal bowel sounds Psych Psychiatric exam: Present normal affect and normal mood Skin Skin exam: Present warm, dry, intact and normal color Results Objective Laboratory: Lumbar G was reviewed and shown to her today from 08/19/2025 revealing bilateral unremarkable fallopian tubes, endometrial polyp with simple hyperplasia no malignancy, unremarkable portion of cervix. Office Procedures [facility] LOC & Office Proc's Nursing/Assessment Patient Status: Established Patient OB Clinic Nursing Assessment: Medication Reconciliation, Update PMH in EMR and Vital Signs OB Clinic Coordination of Care: Complex Care and Chronic Disease 1-5, Education Complex Pt/Fam, Consent,records obtained, informed consent, Lab and Imaging orders, Results/Orders obtained and Staff clarify orders Established Patient Charge Established Patient Point Assignment: 110 Established Patient Point Charge: EP Level 3 (80-115) Assessment & Plan Diagnosis / Problem List (1) Encounter for consultation for female sterilization: Status: Acute Plan: Patient's status post laparoscopic bilateral salpingectomies 08/19/2025. (2) Uterine fibroid: Status: Acute Qualifiers: Uterine leiomyoma location: unspecified location Qualified Code(s): D25.9 - Leiomyoma of uterus, unspecified Plan: Patient's status post removal of fibroid and ablation. (3) Menorrhagia with regular cycle: Status: Acute Plan: Patient has multiple fibroids although they were not intracavitary. If she continues to have heavy bleeding, the patient will probably need a hysterectomy. She will follow-up for annual exams as needed. She had a normal annual this year.
[2025-09-06 14:40] VITALS: BP 133/79; PULSE 82; RESP 18; TEMP 36.3; O2SAT 95; BMI 31.2
== END 2025-09-06 15:41 | disposition home or self-care (01) ==
LOC: HODSOBC 14:00
PROVIDERS: Supervising Provider Obstetrics & Gynecology; Visit Provider Obstetrics & Gynecology
DX: Z48.816 Encounter for surgical aftercare following surgery on the genitourinary system (principal); D25.9 Leiomyoma of uterus, unspecified; I12.9 Hypertensive chronic kidney disease with stage 1 through stage 4 chronic kidney disease, or unspecified chronic kidney disease; E11.22 Type 2 diabetes mellitus with diabetic chronic kidney disease; N18.31 Chronic kidney disease, stage 3a; Z98.51 Tubal ligation status; Z87.42 Personal history of other diseases of the female genital tract; Z79.899 Other long term (current) drug therapy; Z79.4 Long term (current) use of insulin; Z79.85 Long-term (current) use of injectable non-insulin antidiabetic drugs; Z79.82 Long term (current) use of aspirin
CPT/HCPCS: 99213; G0463